=== PATIENT | male | born 1965 | race Caucasian/White ===

== ENCOUNTER 2020-02-16 07:02 | Day surgery (SDC) | payer BC ==
[2020-02-11 10:08] VITALS: BMI 32.8
[~2020-02-16 07:02] MED LIST: LACTATED RINGERS 1,000 ML IV SCH; MIDAZOLAM 2 MG/2 ML VIAL IV PRN; ONDANSETRON 4 MG/2 ML VIAL IVP PRN
[2020-02-16] MEDS ORDERED: LACTATED RINGERS 1,000 ML IV ONE (07:20)
[2020-02-16 07:21] VITALS: TEMP 97.8
[2020-02-16] MEDS ORDERED: PROPOFOL 10 MG/ML 20 ML VIAL IV ONE (07:53)
[2020-02-16] MEDS ORDERED: GLYCOPYRROLATE 0.2 MG/ML 2 ML VIAL ONE (07:53)
--- NOTE | 2020-02-16 07:59 | P.GSHP ---
History of Present Illness H&P Date: 02/16/20 CHIEF COMPLAINT: Colon screen HISTORY OF PRESENT ILLNESS: The patient is a 54-year-old male who presents for colon screen. Lower endoscopy was offered for further evaluation and management. PAST MEDICAL HISTORY: Please see list. PAST SURGICAL HISTORY: Please see list. MEDICATIONS: Please see list. ALLERGIES: Please see list. SOCIAL HISTORY: No illicit drug use FAMILY HISTORY: No reports of Crohn disease or ulcerative colitis. REVIEW OF ORGAN SYSTEMS: CONSTITUTIONAL: No reports of fevers or chills. PHYSICAL EXAM: VITAL SIGNS: Stable GENERAL: Well-developed pleasant in no acute distress. HEENT: No scleral icterus. Extraocular movements grossly intact. Moist buccal mucosa. NECK: Supple without lymphadenopathy. CHEST: Unlabored respirations. Equal bilateral excursions. CARDIOVASCULAR: Regular rate and rhythm. Distal 2+ pulses. ABDOMEN: Soft, nontender, nondistended. MUSCULOSKELETAL: No clubbing, cyanosis, or edema. ASSESSMENT: 1. Colon screen. PLAN: 1. Recommend proceeding with a lower endoscopy Past Medical History Past Medical History: Hyperlipidemia, Prostate Disorder History of Any Multi-Drug Resistant Organisms: None Reported Past Surgical History: No Surgical Hx Reported Additional Past Anesthesia/Blood Transfusion Reaction / Comment(s): no family problems Smoking Status: Current every day smoker Medications and Allergies Home Medications Medication Instructions Recorded Confirmed Type Cholesterol Med 1 tab PO DAILY 02/11/20 02/16/20 History [place]-3 Fatty Acids/Fish Oil [Fish 1 each PO DAILY 02/11/20 02/11/20 History Oil 1,000 mg Softgel] Tamsulosin(Unknown Dose) 1 tab PO DAILY 02/11/20 02/16/20 History Allergies Allergy/AdvReac Type Severity Reaction Status Date / Time No Known Allergies Allergy Verified 02/11/20 09:43 Surgical - Exam Vital Signs Temp Pulse Resp BP Pulse Ox 97.8 F 57 L 18 161/88 97 02/16/20 07:20 02/16/20 07:20 02/16/20 07:20 02/16/20 07:20 02/16/20 07:20
--- NOTE | 2020-02-16 08:18 | P.PCN ---
Date of Procedure: 02/16/20 Description of Procedure: PREOPERATIVE DIAGNOSIS: Colonoscopy screening, first POSTOPERATIVE DIAGNOSIS: Tubular adenoma sigmoid colon OPERATION: Colonoscopy to the ileocecal valve, cecum Colonoscopy with hot snare polypectomy SURGEON: Almita Marshall MD. ANESTHESIA: MAC. INDICATIONS: The patient is a 54-year-old male who presents for colonoscopy screening. Benefits and risks were described and informed consent was obtained. DESCRIPTION OF PROCEDURE: The patient had undergone Suprep. He had been brought into the operating room and laid in the left lateral decubitus position. After adequate intravenous sedation, the rectum was examined with 2% lidocaine jelly. The prostate was unremarkable. No external hemorrhoids were encountered. The rectal tone was within normal limits. No lesions were palpated in the rectal vault. An Olympus colonoscope was advanced until the cecum, ileocecal valve and appendiceal orifice were clearly viewed. The prep was good. No sigmoid diverticulosis was encountered. Large colonic polyp was found and snare polypectomy. No evidence of focal colitis was found. Retroflexion of the scope demonstrated grade 1 internal hemorrhoids without active bleeding or inflammation. The colon was desufflated. The patient had tolerated the procedure well. Withdrawal time was over 6 minutes. FINDINGS: Aronchick preparation quality scale 2 (1-5) Internal hemorrhoids, grade 1 No external hemorrhoids No arteriovenous malformations. No sigmoid diverticulosis Removal of 1 polyp: - Snare polypectomy 25 cm from the anal verge, 20 mm tubular adenoma, pre- cancerous No focal colitis. RECOMMENDATIONS: Recommend repeat colonoscopy 1 year, 2020. Plan - Discharge Summary Discharge Rx Participant: No New Discharge Prescriptions: Continue Tamsulosin(Unknown Dose) 1 tab PO DAILY [place]-3 Fatty Acids/Fish Oil [Fish Oil 1,000 mg Softgel] 1 each PO DAILY Cholesterol Med 1 tab PO DAILY Discharge Medication List Cholesterol Med 1 tab PO DAILY 02/11/20 [History] [place]-3 Fatty Acids/Fish Oil [Fish Oil 1,000 mg Softgel] 1 each PO DAILY 02/11/20 [History] Tamsulosin(Unknown Dose) 1 tab PO DAILY 02/11/20 [History] Follow up Appointment(s)/Referral(s): Almita Marshall MD [STAFF PHYSICIAN] - 02/29/20 Patient Instructions/Handouts: Colorectal Polyps (DC) Activity/Diet/Wound Care/Special Instructions: Repeat colonoscopy in one year, 2020 Discharge Disposition: HOME SELF-CARE
[2020-02-16 08:22] VITALS: RESP 16
[2020-02-16 08:47] VITALS: BP 131/85; PULSE 54
== END 2020-02-16 08:55 | disposition home or self-care (01) ==
LOC: ORWHC2ENDO 07:02
PROVIDERS: ATTEND Surgery Plastic and Reconstructive Surgery
DX: Z12.11 Encounter for screening for malignant neoplasm of colon (principal); D12.6 Benign neoplasm of colon, unspecified; K64.0 First degree hemorrhoids; E78.5 Hyperlipidemia, unspecified; N42.9 Disorder of prostate, unspecified; F17.200 Nicotine dependence, unspecified, uncomplicated; Z79.899 Other long term (current) drug therapy
CPT/HCPCS: 88305; 45385; J2405; J2704

== ENCOUNTER 2020-03-18 14:02 | Emergency (ER) | payer BC ==
[2020-03-18 14:46] VITALS: BP 150/95; PULSE 71; RESP 20; TEMP 98.7
--- NOTE | 2020-03-18 14:58 | ED ---
Skin/Abscess/FB HPI - General Chief complaint: Skin/Abscess/Foreign Body Stated complaint: RT knee poss infection Time Seen by Provider: 03/18/20 14:52 Source: patient Mode of arrival: ambulatory Limitations: no limitations - History of Present Illness Initial comments: Patient 54-year-old male presenting to emergency Department with chief complaint of right knee laceration. Patient reports laceration occurred about 3 days ago and he did not have an repaired. Patient reports since yesterday's noticed surrounding erythema but denies any discharge from laceration site. States the wound is actually healing well. He does report gradual increase in erythema and warmth on the tissue. Tetanus not up-to-date. Reports some pain but more itching at the erythematous site. Denies any night sweats fevers or chills. - Related Data Home Medications Medication Instructions Recorded Confirmed Cholesterol Med 1 tab PO DAILY 02/11/20 02/16/20 [place]-3 Fatty Acids/Fish Oil [Fish 1 each PO DAILY 02/11/20 02/11/20 Oil 1,000 mg Softgel] Tamsulosin(Unknown Dose) 1 tab PO DAILY 02/11/20 02/16/20 Previous Rx's Medication Instructions Recorded Cephalexin [Keflex] 500 mg PO Q6HR #28 cap 03/18/20 Clindamycin [Cleocin] 150 mg PO Q6H #28 capsule 03/18/20 Allergies Allergy/AdvReac Type Severity Reaction Status Date / Time No Known Allergies Allergy Verified 03/18/20 14:46 Review of Systems ROS Statement: Those systems with pertinent positive or pertinent negative responses have been documented in the HPI. ROS Other: All systems not noted in ROS Statement are negative. Past Medical History Past Medical History: Hyperlipidemia, Prostate Disorder History of Any Multi-Drug Resistant Organisms: None Reported Past Surgical History: No Surgical Hx Reported Additional Past Anesthesia/Blood Transfusion Reaction / Comment(s): no family problems Past Psychological History: No Psychological Hx Reported Smoking Status: Current every day smoker Past Alcohol Use History: None Reported Past Drug Use History: None Reported General Exam Limitations: no limitations General appearance: alert, in no apparent distress Head exam: Present: atraumatic, normocephalic, normal inspection Eye exam: Present: normal appearance, PERRL, EOMI Pupils: Present: normal accommodation ENT exam: Present: normal exam, normal oropharynx, mucous membranes moist, TM's normal bilaterally, normal external ear exam Neck exam: Present: normal inspection, full ROM. Absent: tenderness Respiratory exam: Present: normal lung sounds bilaterally. Absent: respiratory distress, wheezes Cardiovascular Exam: Present: regular rate, normal rhythm, normal heart sounds Extremities exam: Present: normal inspection (Healing wound on the right knee measuring approximately 1 cm in length. There is surrounding cellulitic skin changes likely represent cellulitis. No discharge noted), full ROM, tenderness (Tetanus at laceration site), normal capillary refill. Absent: pedal edema, joint swelling, calf tenderness Back exam: Present: normal inspection, full ROM. Absent: tenderness, CVA tenderness (R), CVA tenderness (L) Neurological exam: Present: alert, oriented X3 Psychiatric exam: Present: normal affect, normal mood Skin exam: Present: warm, dry, intact, normal color Course Vital Signs 03/18/20 14:43 Temperature 98.7 F Pulse Rate 71 Respiratory 20 Rate Blood Pressure 150/95 O2 Sat by Pulse 98 Oximetry Medical Decision Making - Medical Decision Making 54-year-old male presenting to the emergency department with a chief complaint of infected laceration site. On physical examination, patient has a well- healing laceration measuring approximately 1 cm with surrounding cellulitis. There is no discharge noted at the lacerated site. Patient has stable vitals on evaluation. Patient started on clindamycin to cover for MRSA and Keflex. Return parameters discussed the patient is understanding and agreeable. Case discussed with physician. Disposition Clinical Impression: Laceration, Cellulitis, Skin infection Disposition: HOME SELF-CARE Condition: Stable Instructions (If sedation given, give patient instructions): Cellulitis (DC) Additional Instructions: Take prescribed medication as directed. Monitor for increased infection past the marked borders. Follow with your primary care physician. Return to emergency department if symptoms worsen. Prescriptions: Clindamycin [Cleocin] 150 mg PO Q6H #28 capsule Cephalexin [Keflex] 500 mg PO Q6HR #28 cap Is patient prescribed a controlled substance at d/c from ED?: No Referrals: Rich Rincon MD [Primary Care Provider] - 1-2 days Time of Disposition: 15:17
[2020-03-18] MEDS ORDERED: DIPH,PERTUS(ACELL)TETVAC-LF 0.5 ML VIAL IM ONE (15:15)
[2020-03-18] MEDS ORDERED: CEPHALEXIN 500 MG CAP PO STA (15:15)
[2020-03-18] MEDS ORDERED: CLINDAMYCIN 150 MG CAP PO STA (15:15)
== END 2020-03-18 15:32 | disposition home or self-care (01) ==
LOC: EC 14:02
DX: S81.011A Laceration without foreign body, right knee, initial encounter (principal); L03.115 Cellulitis of right lower limb; E78.5 Hyperlipidemia, unspecified; F17.200 Nicotine dependence, unspecified, uncomplicated; Z79.899 Other long term (current) drug therapy; Z23 Encounter for immunization; X58.XXXA Exposure to other specified factors, initial encounter
CPT/HCPCS: 90471; 90715; 99282

== ENCOUNTER 2021-12-26 07:32 | Day surgery (SDC) | payer OTHER ==
[2021-12-24 12:36] VITALS: BMI 30.3
[~2021-12-26 07:32] MED LIST changes: +LIDOCAINE 1% (10MG/ML) FOR IV START INTRADERMA PRN; -MIDAZOLAM 2 MG/2 ML VIAL IV PRN; -ONDANSETRON 4 MG/2 ML VIAL IVP PRN
[2021-12-26] MEDS ORDERED: LACTATED RINGERS 1,000 ML IV ONE (08:00)
--- NOTE | 2021-12-26 08:02 | P.GSHP ---
History of Present Illness H&P Date: 12/26/21 CHIEF COMPLAINT: Colon screen HISTORY OF PRESENT ILLNESS: The patient is a 56-year-old male who presents for colon screen. Lower endoscopy was offered for further evaluation and management. PAST MEDICAL HISTORY: Please see list. PAST SURGICAL HISTORY: Please see list. MEDICATIONS: Please see list. ALLERGIES: Please see list. SOCIAL HISTORY: No illicit drug use FAMILY HISTORY: No reports of Crohn disease or ulcerative colitis. REVIEW OF ORGAN SYSTEMS: CONSTITUTIONAL: No reports of fevers or chills. PHYSICAL EXAM: VITAL SIGNS: Stable GENERAL: Well-developed pleasant in no acute distress. HEENT: No scleral icterus. Extraocular movements grossly intact. Moist buccal mucosa. NECK: Supple without lymphadenopathy. CHEST: Unlabored respirations. Equal bilateral excursions. CARDIOVASCULAR: Regular rate and rhythm. Distal 2+ pulses. ABDOMEN: Soft, nontender, nondistended. MUSCULOSKELETAL: No clubbing, cyanosis, or edema. ASSESSMENT: 1. Colon screen. PLAN: 1. Recommend proceeding with a lower endoscopy Past Medical History Past Medical History: Hyperlipidemia Additional Past Medical History / Comment(s): hx colon polyp, History of Any Multi-Drug Resistant Organisms: None Reported Past Surgical History: No Surgical Hx Reported Additional Past Surgical History / Comment(s): colonoscopy Past Anesthesia/Blood Transfusion Reactions: No Reported Reaction Additional Past Anesthesia/Blood Transfusion Reaction / Comment(s): . Smoking Status: Current every day smoker - Past Family History Mother Family Medical History: No Reported History Medications and Allergies Home Medications Medication Instructions Recorded Confirmed Type Aspirin(Dose Unknown) 1 tab PO DAILY PRN 12/24/21 12/24/21 History lisinopriL [Zestril] 10 mg PO DAILY 12/24/21 12/24/21 History Allergies Allergy/AdvReac Type Severity Reaction Status Date / Time No Known Allergies Allergy Verified 12/24/21 12:29
[2021-12-26 08:06] VITALS: RESP 16; TEMP 97.4
[2021-12-26] MEDS ORDERED: MIDAZOLAM 2 MG/2 ML VIAL ONE (09:23)
[2021-12-26] MEDS ORDERED: PROPOFOL 10 MG/ML 20 ML VIAL IV ONE (09:23)
[2021-12-26] MEDS ORDERED: fentaNYL (PF) 50 MCG/ML 50 ML VIAL ONE (09:23)
[2021-12-26] MEDS ORDERED: LIDOCAINE 2% INJ 20 MG/ML (2 ML VIAL) ONE (09:23)
--- NOTE | 2021-12-26 09:54 | P.PCN ---
Description of Procedure: PREOPERATIVE DIAGNOSIS: Personal history colon polyp Colonoscopy screening. POSTOPERATIVE DIAGNOSIS: Personal history colon polyp Colonoscopy screening. OPERATION: Colonoscopy to the cecum, ileocecal valve and appendiceal orifice. SURGEON: Almita Marshall MD. ANESTHESIA: MAC. INDICATIONS: The patient is a 56-year-old male who presents for colonoscopy screening. Last colonoscopy 5 years ago. Benefits and risks were described and informed consent was obtained. DESCRIPTION OF PROCEDURE: The patient had undergone [place] prep. The patient had been brought into the operating room and laid in the left lateral decubitus position. After adequate intravenous sedation, the rectum was examined with 2% lidocaine jelly. No exter nal hemorrhoids were encountered. The rectal tone was within normal limits. No lesions were palpated in the rectal vault. An Olympus colonoscope was advanced until the cecum, ileocecal valve and appendiceal orifice were clearly viewed. The prep was good. No scattered diverticulosis was encountered. No colonic polyps were found. No evidence of focal colitis was found. Retroflexion of the scope demonstrated grade 1 internal hemorrhoids without active bleeding or inflammation. The colon was desufflated. The patient had tolerated the procedure well. Withdrawal time was over 6 minutes. FINDINGS: Aronchick preparation quality scale 2 (1-5) Internal hemorrhoids, grade 1 No external prolapsed hemorrhoids. No arteriovenous malformations. No adenomatous polyps. No focal colitis. RECOMMENDATIONS: Lower endoscopy in 2026 Plan - Discharge Summary New Discharge Prescriptions: Continue lisinopriL [Zestril] 10 mg PO DAILY Aspirin(Dose Unknown) 1 tab PO DAILY PRN PRN Reason: Pain Discharge Medication List Aspirin(Dose Unknown) 1 tab PO DAILY PRN 12/24/21 [History] lisinopriL [Zestril] 10 mg PO DAILY 12/24/21 [History] Follow up Appointment(s)/Referral(s): Almita Marshall MD [STAFF PHYSICIAN] - As Needed Patient Instructions/Handouts: *Surgery [facility] - (Anesthesia) Endoscopy Discharge Instructions Activity/Diet/Wound Care/Special Instructions: Repeat colonoscopy 2026 Discharge Disposition: HOME SELF-CARE
[2021-12-26 10:10] VITALS: BP 113/76; PULSE 63
== END 2021-12-26 10:31 | disposition home or self-care (01) ==
LOC: ORWHC2ENDO 07:32
PROVIDERS: ATTEND Surgery Plastic and Reconstructive Surgery
DX: Z12.11 Encounter for screening for malignant neoplasm of colon (principal); K64.0 First degree hemorrhoids; Z86.010 Personal history of colon polyps; F17.200 Nicotine dependence, unspecified, uncomplicated; E78.5 Hyperlipidemia, unspecified; Z87.19 Personal history of other diseases of the digestive system
CPT/HCPCS: 45378; J2250; J3010; J2704; J2001

== ENCOUNTER 2022-04-02 18:29 | Emergency (ER) | payer OTHER ==
[2022-04-02 18:43] VITALS: TEMP 98.8
[2022-04-02] MEDS ORDERED: ORPHENADRINE 30 MG/ML 2 ML VIAL IM STA (19:23)
[2022-04-02] MEDS ORDERED: KETOROLAC 15 MG/ML 1 ML VIAL IM STA (19:23)
[2022-04-02 19:35] VITALS: RESP 18
--- NOTE | 2022-04-02 20:03 | ED ---
General Adult HPI - General Chief complaint: Abdominal Pain Stated complaint: back pain Time Seen by Provider: 04/02/22 19:07 Source: patient Mode of arrival: ambulatory Limitations: no limitations - History of Present Illness Initial comments: Patient is a 57-year-old male presenting with chief complaint of back pain. Patient has been having right-sided back pain on and off for the last month. He admits to frequent urination. Denies dysuria or hematuria. Patient states that he was seen by urologist and found to have a cyst on his kidney. He denies any abdominal pain. No nausea or vomiting. No chest pain or difficulty breathing. Patient has been taking Motrin for the pain which completely alleviates the pain for a few hours. Pain is worse with range of motion. No loss of bowel or bladder control or saddle paresthesia. - Related Data Home Medications Medication Instructions Recorded Confirmed Lisinopril-Hctz 10-12.5 mg 1 tab PO DIRECTED 04/02/22 04/02/22 [Zestoretic 10-12.5] Tamsulosin [Flomax] 0.4 mg PO DAILY 04/02/22 04/02/22 Previous Rx's Medication Instructions Recorded Ciprofloxacin HCl [Cipro] 500 mg PO BID 7 Days #14 tab 04/02/22 Allergies Allergy/AdvReac Type Severity Reaction Status Date / Time No Known Allergies Allergy Verified 04/02/22 20:22 Review of Systems ROS Statement: Those systems with pertinent positive or pertinent negative responses have been documented in the HPI. ROS Other: All systems not noted in ROS Statement are negative. Past Medical History Past Medical History: Hyperlipidemia Additional Past Medical History / Comment(s): hx colon polyp, cyst on kidney History of Any Multi-Drug Resistant Organisms: None Reported Past Surgical History: No Surgical Hx Reported Additional Past Surgical History / Comment(s): colonoscopy Past Anesthesia/Blood Transfusion Reactions: No Reported Reaction Additional Past Anesthesia/Blood Transfusion Reaction / Comment(s): . Past Psychological History: No Psychological Hx Reported Smoking Status: Current every day smoker - Past Family History Mother Family Medical History: No Reported History General Exam Limitations: no limitations General appearance: alert, in no apparent distress Head exam: Present: atraumatic, normocephalic, normal inspection Eye exam: Present: normal appearance Neck exam: Present: normal inspection Respiratory exam: Present: normal lung sounds bilaterally. Absent: respiratory distress, wheezes, rales, rhonchi, stridor Cardiovascular Exam: Present: regular rate, normal rhythm, normal heart sounds. Absent: systolic murmur, diastolic murmur, rubs, gallop, clicks GI/Abdominal exam: Present: soft. Absent: distended, tenderness, guarding, rebound, rigid Back exam: Absent: CVA tenderness (R), CVA tenderness (L) Neurological exam: Present: alert, oriented X3, CN II-XII intact Psychiatric exam: Present: normal affect, normal mood Skin exam: Present: warm, dry, intact, normal color. Absent: rash Course Vital Signs 04/02/22 04/02/22 04/02/22 18:40 19:34 22:37 Temperature 98.8 F Pulse Rate 91 86 75 Respiratory 20 18 18 Rate Blood Pressure 210/110 154/93 160/78 O2 Sat by Pulse 97 98 98 Oximetry Medical Decision Making - Medical Decision Making Was pt. sent in by a medical professional or institution (, PA, MACHINE WOODWORKING SANDER, urgent care, hospital, or prison...) When possible be specific @ -[No] Did you speak to anyone other than the patient for history (EMS, parent, family, police, friend...)? What history was obtained from this source @ -[No] Did you review nursing and triage notes (agree or disagree)? Why? @ -I reviewed the triage note and disagree, patient has no CVA tenderness on my examination and denies painful urination Were old charts reviewed (outside hosp., previous admission, EMS record, old EKG, old radiological studies, urgent care reports/EKG's, prison records)? Report findings @ -[No old charts were reviewed] Differential Diagnosis (chest pain, altered mental status, abdominal pain women, abdominal pain men, vaginal bleeding, weakness, fever, dyspnea, syncope, headache, dizziness, GI bleed, back pain, seizure, CVA, palpatations, mental health)? @ -MDM Differential Back Pain: Strain, zoster, cauda equina syndrome, epidural abscess, vertebral osteomyelitis, discitis, fracture, subluxation, disc herniation, DJD, spinal stenosis, dissection, AAA, pancreatitis, peptic ulcer disease, pyelonephritis, kidney stone this is not meant to be an all-inclusive list. EKG interpreted by me (3pts min.). @ -None X-rays interpreted by me (1pt min.). @ -X-ray of the lumbar spine KUB x-ray showed no acute process CT interpreted by me (1pt min.). @ -No, Radiologist report is reviewed. Moderate hydroureter nephrosis without obstructive calculus identified. May represent a recently passed stone. Circumferential bladder wall thickening. Prostatomegaly. Bilateral fat conta ining inguinal hernias. U/S interpreted by me (1pt. min.). @ -[None done] What testing was considered but not performed or refused? (CT, X-rays, U/S, labs)? Why? @ -[None] What meds were considered but not given or refused? Why? @ -[None] Did you discuss the management of the patient with other professionals (professionals i.e. , PA, MACHINE WOODWORKING SANDER, lab, RT, psych nurse, social studies department chair, costume rental clerk, teacher, upscale security officer, returned case inspector)? Give summary @ -[No] Was smoking cessation discussed for >3mins.? @ -[No] Was critical care preformed (if so, how long)? @ -[No] Were there social determinants of health that impacted care today? How? (Homelessness, low income, unemployed, alcoholism, drug addiction, transportation, low edu. Level, literacy, decrease access to med. care, [place] [facility], rehab)? @ -[No] Was there de-escalation of care discussed even if they declined (Discuss DNR or withdrawal of care, Hospice)? DNR status @ -[No] What co-morbidities impacted this encounter? (DM, HTN, Smoking, COPD, CAD, Cancer, CVA, ARF, Chemo, Hep., AIDS, mental health diagnosis, sleep apnea, morbid obesity)? @ -Hypertension Was patient admitted / discharged? Hospital course, mention meds given and route, prescriptions, significant lab abnormalities, going to OR and other pertinent info. @ -Patient is a 57-year-old male presenting with chief complaint of right-sided flank pain for the last month. On physical examination there is no CVA tenderness. Patient does have pain with range of motion. Urine shows moderate blood and large leukocytes. Lab work shows no leukocytosis or anemia. X-ray of the lumbar spine KUB x-ray showed no acute process. CT of the abdomen and pelvis without contrast shows hydroureter nephrosis without obstructive calculus, likely recently passed stone. CT also shows signs of cystitis, this correlates clinically with the patient's symptom of frequent urination. Patient will be treated with ciprofloxacin. Patient is educated on these findings and treatment plan. He is encouraged to follow up with his urologist at [facility]. Follow-up with PCP. Report back to ER with any new or worsening symptoms. Discussed return parameters and answered all questions. Patient conveyed verbal understanding and agreed to the plan. I discussed this case in detail with my attending Dr. Freire Undiagnosed new problem with uncertain prognosis? @ -[No] Drug Therapy requiring intensive monitoring for toxicity (Heparin, Nitro, Insulin, Cardizem)? @ -[No] Were any procedures done? @ -[No] Diagnosis/symptom? @ -Cystitis Acute, or Chronic, or Acute on Chronic? @ -Acute Uncomplicated (without systemic symptoms) or Complicated (systemic symptoms)? @ -Uncomplicated Side effects of treatment? @ -[No] Exacerbation, Progression, or Severe Exacerbation? @ -[No] Poses a threat to life or bodily function? How? (Chest pain, [place], [place], pneumonia, PE, COPD, DKA, ARF, appy, cholecystitis, CVA, Diverticulitis, Homicidal, Suicidal, threat to staff... and all critical care pts) @ -Infection of the urinary tract if not properly treated may progress to pyelonephritis and bacteremia. Patient is educated on the risk of infection and the importance of follow-up. Educated on the the importance of reporting back to the ER if symptoms persist or do not improve. - Lab Data Result diagrams: 04/02/22 21:05 04/02/22 21:05 Lab Results 04/02/22 04/02/22 04/02/22 Range/Units 19:30 21:05 21:05 WBC 10.0 (3.8-10.6) k/uL RBC 4.77 (4.30-5.90) m/uL Hgb 15.0 (13.0-17.5) gm/dL Hct 43.8 (39.0-53.0) % MCV 91.8 (80.0-100.0) fL MCH 31.4 (25.0-35.0) pg MCHC 34.2 (31.0-37.0) g/dL RDW 11.8 (11.5-15.5) % Plt Count 224 (150-450) k/uL MPV 7.7 Neutrophils % 72 % Lymphocytes % 18 % Monocytes % 6 % Eosinophils % 2 % Basophils % 1 % Neutrophils # 7.1 (1.3-7.7) k/uL Lymphocytes # 1.8 (1.0-4.8) k/uL Monocytes # 0.6 (0-1.0) k/uL Eosinophils # 0.2 (0-0.7) k/uL Basophils # 0.1 (0-0.2) k/uL Sodium 138 (137-145) mmol/L Potassium 4.0 (3.5-5.1) mmol/L Chloride 107 (98-107) mmol/L Carbon Dioxide 27 (22-30) mmol/L Anion Gap 4 mmol/L BUN 16 (9-20) mg/dL Creatinine 0.72 (0.66-1.25) mg/dL Est GFR (CKD-EPI)AfAm >90 (>60 ml/min/1.73 sqM) Est GFR (CKD-EPI)NonAf >90 (>60 ml/min/1.73 sqM) Glucose 114 H (74-99) mg/dL Plasma Lactic Acid Panchito (0.7-2.0) mmol/L Calcium 8.8 (8.4-10.2) mg/dL Total Bilirubin 0.7 (0.2-1.3) mg/dL AST 32 (17-59) U/L ALT 44 (4-49) U/L Alkaline Phosphatase 73 (38-126) U/L Total Protein 6.1 L (6.3-8.2) g/dL Albumin 3.4 L (3.5-5.0) g/dL Urine Color Yellow Urine Appearance Cloudy (Clear) Urine pH 5.5 (5.0-8.0) Ur Specific [place] 1.020 (1.001-1.035) Urine Protein 1+ H (Negative) Urine Glucose (UA) Negative (Negative) Urine Ketones Negative (Negative) Urine Blood Moderate H (Negative) Urine Nitrite Negative (Negative) Urine Bilirubin Negative (Negative) Urine Urobilinogen <2.0 (<2.0) mg/dL Ur Leukocyte Esterase Large H (Negative) Urine RBC >182 H (0-5) /hpf Urine WBC 150 H (0-5) /hpf Urine Bacteria Occasional H (None) /hpf Urine Mucus Rare H (None) /hpf 04/02/22 Range/Units 21:05 WBC (3.8-10.6) k/uL RBC (4.30-5.90) m/uL Hgb (13.0-17.5) gm/dL Hct (39.0-53.0) % MCV (80.0-100.0) fL MCH (25.0-35.0) pg MCHC (31.0-37.0) g/dL RDW (11.5-15.5) % Plt Count (150-450) k/uL MPV Neutrophils % % Lymphocytes % % Monocytes % % Eosinophils % % Basophils % % Neutrophils # (1.3-7.7) k/uL Lymphocytes # (1.0-4.8) k/uL Monocytes # (0-1.0) k/uL Eosinophils # (0-0.7) k/uL Basophils # (0-0.2) k/uL Sodium (137-145) mmol/L Potassium (3.5-5.1) mmol/L Chloride (98-107) mmol/L Carbon Dioxide (22-30) mmol/L Anion Gap mmol/L BUN (9-20) mg/dL Creatinine (0.66-1.25) mg/dL Est GFR (CKD-EPI)AfAm (>60 ml/min/1.73 sqM) Est GFR (CKD-EPI)NonAf (>60 ml/min/1.73 sqM) Glucose (74-99) mg/dL Plasma Lactic Acid Panchito 0.8 (0.7-2.0) mmol/L Calcium (8.4-10.2) mg/dL Total Bilirubin (0.2-1.3) mg/dL AST (17-59) U/L ALT (4-49) U/L Alkaline Phosphatase (38-126) U/L Total Protein (6.3-8.2) g/dL Albumin (3.5-5.0) g/dL Urine Color Urine Appearance (Clear) Urine pH (5.0-8.0) Ur Specific [place] (1.001-1.035) Urine Protein (Negative) Urine Glucose (UA) (Negative) Urine Ketones (Negative) Urine Blood (Negative) Urine Nitrite (Negative) Urine Bilirubin (Negative) Urine Urobilinogen (<2.0) mg/dL Ur Leukocyte Esterase (Negative) Urine RBC (0-5) /hpf Urine WBC (0-5) /hpf Urine Bacteria (None) /hpf Urine Mucus (None) /hpf Disposition Clinical Impression: Cystitis, Hydronephrosis Disposition: HOME SELF-CARE Condition: Good Instructions (If sedation given, give patient instructions): Urinary Tract Infection in Men (ED), Flank Pain (ED) Additional Instructions: Follow-up with PCP and your urologist. Report back to ER with any new or worsening symptoms. Take medication as prescribed. Take Motrin and Tylenol as needed for pain control. Prescriptions: Ciprofloxacin HCl [Cipro] 500 mg PO BID 7 Days #14 tab Is patient prescribed a controlled substance at d/c from ED?: No Referrals: Jennifer Herrera MD [Primary Care Provider] - 1-2 days Time of Disposition: 22:16
[2022-04-02 20:16] LABS: Appearance,Urine Cloudy (Clear); Bacteria,Urine Occasional /hpf; Bilirubin,Urine Negative (Negative); Blood,Urine Moderate (Negative); Color,Urine Yellow; Glucose,Urine (UA) Negative (Negative); Ketones,Urine Negative (Negative); Leukocyte Esterase,Urine Large (Negative); Mucus,Urine Rare /hpf; Nitrite,Urine Negative (Negative); PH, Urine 5.5 (5.0-8.0); Protein,Urine 1+ (Negative); RBC,Urine >182 /hpf (0-5); Urobilinogen,Urine <2.0 mg/dL (<2.0); WBC,Urine 150 /hpf (0-5)
--- NOTE | 2022-04-02 20:28 | XR ---
EXAMINATION TYPE: XR KUB DATE OF EXAM: 04/02/2022 7:50 PM INDICATION: Patient age:Male; 57 years old; Reason for study: flank pain; COMPARISON: Spine radiograph same day. TECHNIQUE: One radiographic view of the abdomen was obtained. FINDINGS: The bowel gas pattern is nonspecific without dilated loops of small or large bowel. There i s no evidence for organomegaly or pneumoperitoneum. The osseous structures are intact. No abnormal calcifications are present. Fecal material and gas are demonstrated throughout the colon and rectum. Scoliosis changes to the spine dextroscoliosis apex L2-L3. IMPRESSION: Nonspecific bowel gas pattern without radiographic evidence for acute process.
--- NOTE | 2022-04-02 20:29 | XR ---
EXAMINATION TYPE: XR lumbar spine 2 or 3V DATE OF EXAM: 04/02/2022 7:53 PM INDICATION: Patient age:Male; 57 years old; Reason for study: flank pain; COMPARISON: Same day KUB. TECHNIQUE: Frontal, lateral and coned in L5-S1 lateral views of the spine. FINDINGS: No evidence of any acute osseous pathology. No evidence of loss of vertebral body height i s seen. . DEXA scoliosis apex L2-L3 Mild scattered disc space narrowing. Multilevel marginal osteophy te formation throughout the visualized spine. There is facet joint arthropathy throughout the spine. Scattered at least mild neural foraminal stenosis. IMPRESSION: 1. No acute fracture. 2. Moderate multilevel disc degeneration.
[2022-04-02] MEDS ORDERED: SODIUM CHLORIDE 0.9% 1,000 ML IV ONE (20:33)
[2022-04-02 21:18] LABS: Basophils # (A) 0.1 k/uL (0-0.2); Basophils % (A) 1 %; Eosinophils # (A) 0.2 k/uL (0-0.7); Eosinophils % (A) 2 %; HCT 43.8 % (39.0-53.0); Lymphocytes # (A) 1.8 k/uL (1.0-4.8); Lymphocytes % (A) 18 %; MCH 31.4 pg (25.0-35.0); MCHC 34.2 g/dL (31.0-37.0); MCV 91.8 fL (80.0-100.0); Mean Platelet Volume 7.7; Monocytes # (A) 0.6 k/uL (0-1.0); Monocytes % (A) 6 %; Neutrophils # (A) 7.1 k/uL (1.3-7.7); Neutrophils % (A) 72 %; Platelet Count 224 k/uL (150-450); RBC 4.77 m/uL (4.30-5.90); RDW 11.8 % (11.5-15.5)
--- NOTE | 2022-04-02 21:21 | CT ---
EXAMINATION TYPE: CT abdomen pelvis wo con CT DLP: 1110.4 mGycm, Automated exposure control for dose reduction was used. DATE OF EXAM: 04/02/2022 8:56 PM COMPARISON: None CLINICAL INDICATION:Male, 57 years old with history of flank pain, kidney stone suspected; Rt side fl ank pain x1mo. Painful urination. TECHNIQUE: Axial CT of the abdomen and pelvis. Sagittal and coronal reformats were created on a [employer] workstation. Contrast used: None Oral contrast used: without Oral Contrast FINDINGS: LOWER CHEST: [id number] ABDOMEN Motion artifact limits evaluation slightly. LIVER: Unremarkable GALLBLADDER AND BILE DUCTS: Unremarkable. PANCREAS: Unremarkable. SPLEEN: Enlarged measuring up to 16.0 cm.e ADRENAL GLANDS: Unremarkable. KIDNEYS AND URETERS: Left peripelvic renal cysts. Mild right hydronephrosis with out evidence for obs tructive uropathy. PELVIS BLADDER: Circumferential bladder wall prominence with some hazy fat interface. REPRODUCTIVE: Prostate is enlarged in size measuring 6.2 cm in transverse dimension. ABDOMEN & PELVIS STOMACH AND BOWEL: Small hiatal hernia, duodenum is unremarkable. Scattered diverticula are noted thr oughout the colon. No evidence of bowel obstruction. Appendix not definitively visualized. PERITONEUM/RETROPERITONEUM: No evidence of pneumoperitoneum or free fluid. . VASCULATURE: No evidence of aortic aneurysm. Atherosclerosis of the arterial vasculature. MUSCULOSKELETAL: No acute osseous abnormalities, multilevel disc degeneration changes disc space narr owing vacuum disc phenomenon, osteophytes and facet joint arthropathy. LYMPH NODES: No gross evidence for lymphadenopathy. SOFT TISSUE/ABDOMINAL WALL: Bilateral fat-containing inguinal hernias. IMPRESSION: 1. Moderate hydroureteronephrosis without obstructive calculus identified. This may represent recent ly passed stone. Correlate clinically and with urinalysis. The appendix is not definitively visualize d. 2. Circumferential bladder wall thickening. Correlate with urinalysis for cystitis. 3. Prostatomegaly correlate with serum PSA. 4. Bilateral fat-containing inguinal hernias.
[2022-04-02 21:24] LABS: ALT 44 U/L (4-49); AST 32 U/L (17-59); African American GFR (CKD) >90 (>60 ml/min/1.73 sqM); Albumin 3.4 g/dL (3.5-5.0); Alkaline Phosphatase 73 U/L (38-126); Anion Gap 4 mmol/L; Blood Urea Nitrogen 16 mg/dL (9-20); Calcium 8.8 mg/dL (8.4-10.2); Carbon Dioxide 27 mmol/L (22-30); Chloride 107 mmol/L (98-107); Glucose 114 mg/dL (74-99); Non-African American GFR(CKD) >90 (>60 ml/min/1.73 sqM); Sodium 138 mmol/L (137-145); Total Bilirubin 0.7 mg/dL (0.2-1.3); Total Protein 6.1 g/dL (6.3-8.2)
[2022-04-02] MEDS ORDERED: CIPROFLOXACIN HCL 500 MG TAB PO STA (22:16)
[2022-04-02 22:39] VITALS: BP 160/78; PULSE 75
== END 2022-04-02 22:38 | disposition home or self-care (01) ==
LOC: EC 18:29
DX: N30.90 Cystitis, unspecified without hematuria (principal); N13.30 Unspecified hydronephrosis; F17.200 Nicotine dependence, unspecified, uncomplicated
CPT/HCPCS: 36415; 80053; 83605; 85025; 81001; 87086; 72100; 74018; 74176; 99284; 96360; 96372; J2360; J1885

== ENCOUNTER 2022-07-03 14:55 | Emergency (ER) | payer OTHER ==
[2022-07-03 15:23] VITALS: TEMP 97.9
[2022-07-03] MEDS ORDERED: SODIUM CHLORIDE 0.9% 1,000 ML IV STA ×2 (15:47)
[2022-07-03] MEDS ORDERED: ONDANSETRON 4 MG/2 ML VIAL IVP STA (15:47)
[2022-07-03] MEDS ORDERED: KETOROLAC 15 MG/ML 1 ML VIAL IVP STA (15:47)
--- NOTE | 2022-07-03 15:57 | ED ---
Abdominal Pain HPI - General Chief Complaint: Back Pain/Injury Stated Complaint: KIDNEY STONES Time Seen by Provider: 07/03/22 15:27 Source: patient, RN notes reviewed, old records reviewed Mode of arrival: ambulatory Limitations: no limitations - History of Present Illness Initial Comments: This is a 57-year-old male to the emergency department for evaluation ketones and comes in for evaluation back pain flank pain significant severe. History of kidney stones feels a prior kidney stones. No travel show sick contacts no dysuria no blood in his urine. No fevers no other complaints MD Complaint: abdominal pain, flank pain -: hour(s) Location: diffuse Radiation: bilateral flank Migration to: no migration Severity: moderate Severity scale (1-10): 5 Quality: stabbing Consistency: intermittent Improves With: nothing Worsens With: nothing Context: other Associated Symptoms: denies other symptoms Treatments Prior to Arrival: other (0) - Related Data Home Medications Medication Instructions Recorded Confirmed Lisinopril-Hctz 10-12.5 mg 1 tab PO DIRECTED 04/02/22 04/02/22 [Zestoretic 10-12.5] Tamsulosin [Flomax] 0.4 mg PO DAILY 04/02/22 04/02/22 Previous Rx's Medication Instructions Recorded Ciprofloxacin HCl [Cipro] 500 mg PO BID 7 Days #14 tab 04/02/22 Allergies Allergy/AdvReac Type Severity Reaction Status Date / Time No Known Allergies Allergy Verified 07/03/22 15:23 Review of Systems ROS Statement: Those systems with pertinent positive or pertinent negative responses have been documented in the HPI. ROS Other: All systems not noted in ROS Statement are negative. Past Medical History Past Medical History: Hyperlipidemia Additional Past Medical History / Comment(s): hx colon polyp, cyst on kidney, kidey stones History of Any Multi-Drug Resistant Organisms: None Reported Past Surgical History: No Surgical Hx Reported Additional Past Surgical History / Comment(s): colonoscopy Past Anesthesia/Blood Transfusion Reactions: No Reported Reaction Additional Past Anesthesia/Blood Transfusion Reaction / Comment(s): . Past Psychological History: No Psychological Hx Reported Smoking Status: Current every day smoker Past Alcohol Use History: Occasional Past Drug Use History: Marijuana - Past Family History Mother Family Medical History: No Reported History General Exam Limitations: no limitations General appearance: alert, in no apparent distress Head exam: Present: atraumatic, normocephalic, normal inspection Eye exam: Present: normal appearance, PERRL, EOMI. Absent: scleral icterus, conjunctival injection, periorbital swelling ENT exam: Present: normal exam, mucous membranes moist Neck exam: Present: normal inspection. Absent: tenderness, meningismus, lymphadenopathy Respiratory exam: Present: normal lung sounds bilaterally. Absent: respiratory distress, wheezes, rales, rhonchi, stridor Cardiovascular Exam: Present: regular rate, normal rhythm, normal heart sounds. Absent: systolic murmur, diastolic murmur, rubs, gallop, clicks GI/Abdominal exam: Present: soft, normal bowel sounds. Absent: distended, tenderness, guarding, rebound, rigid Extremities exam: Present: normal inspection, full ROM, normal capillary refill. Absent: tenderness, pedal edema, joint swelling, calf tenderness Back exam: Present: normal inspection Neurological exam: Present: alert, oriented X3, CN II-XII intact Psychiatric exam: Present: normal affect, normal mood Skin exam: Present: warm, dry, intact, normal color. Absent: rash Course Vital Signs 07/03/22 07/03/22 15:21 17:31 Temperature 97.9 F Pulse Rate 65 76 Respiratory 20 18 Rate Blood Pressure 157/96 146/84 O2 Sat by Pulse 96 99 Oximetry - Reevaluation(s) Reevaluation #1: 07/03/22 18:00 medical record is reviewed Reevaluation #2: 07/03/22 18:00 Patient symptoms are improved here in the ER Reevaluation #3: 07/03/22 18:00 Patient informed results and questions answered Reevaluation #4: 07/03/22 18:00 Was pt. sent in by a medical professional or institution? @ -no Did you speak to anyone other than the patient for history? @ -no Did you review nursing and triage notes? @ -agree Were old charts reviewed? @ -non Differential Diagnosis? @ -no EKG interpreted by me (3pts min.)? @ -no X-rays interpreted by me (1pt min.)? @ -no CT interpreted by me (1pt min.)? @ -no U/S interpreted by me (1pt. min.)? @ -no What testing was considered but not performed? (CT, X-rays, U/S, labs)? Why? @ -no What meds were considered but not given? Why? @ -no Did you discuss the management of the patient with other professionals? @ -no Did you reconcile home meds? @ -no Was smoking cessation discussed for >3mins.? @ -no Was critical care preformed (if so, how long)? @ -no Were there social determinants of health that impacted care today? How? (Homelessness, low income, unemployed, alcoholism, drug addiction, transportation, low edu. Level, literacy, decrease access to med. care, fdc, rehab)? @ -no Was there de-escalation of care discussed even if they declined? (Discuss DNR or withdrawal of care, Hospice)? @ -no What co-morbidities impacted this encounter? (DM, HTN, Smoking, COPD, CAD, Cancer, CVA, Hep., AIDS, mental health diagnosis, sleep apnea, morbid obesity)? @ -no Was patient admitted / discharged? @ -dc Undiagnosed new problem with uncertain prognosis? @ -no Drug Therapy requiring intensive monitoring for toxicity (Heparin, Nitro, I nsulin, Cardizem)? @ -no Were any procedures done? @ -no Diagnosis/symptom? @ -no Acute, or Chronic, or Acute on Chronic? @ -no Uncomplicated (without systemic symptoms) or Complicated (systemic symptoms)? @ -no Side effects of treatment? @ -no Exacerbation, Progression, or Severe Exacerbation] @ -no Poses a threat to life or bodily function? @ -no Reevaluation #5: 07/01/22 18:00 Differential Abdominal Pain Men: Appendicitis, cholecystitis, diverticulosis, ischemic bowel, pancreatitis, hepatitis, UTI, gastroenteritis, AAA, incarcerated hernia, bowel obstruction, constipation, inflammatory bowel, hepatitis, peptic ulcer disease, splenic infarction, perforated viscus, testicular torsion, this is not meant to be an all-inclusive list Medical Decision Making - Medical Decision Making 57 male to the ED for abdominal pain concern kidney stones no significant findings and can be discharged - Lab Data Result diagrams: 07/03/22 16:22 07/03/22 16:22 Lab Results 07/03/22 07/03/22 Range/Units 16:22 16:22 WBC 5.5 (3.8-10.6) k/uL RBC 5.17 (4.30-5.90) m/uL Hgb 16.7 (13.0-17.5) gm/dL Hct 47.3 (39.0-53.0) % MCV 91.5 (80.0-100.0) fL MCH 32.3 (25.0-35.0) pg MCHC 35.3 (31.0-37.0) g/dL RDW 12.4 (11.5-15.5) % Plt Count 196 (150-450) k/uL MPV 7.5 Neutrophils % 60 % Lymphocytes % 30 % Monocytes % 5 % Eosinophils % 3 % Basophils % 0 % Neutrophils # 3.3 (1.3-7.7) k/uL Lymphocytes # 1.7 (1.0-4.8) k/uL Monocytes # 0.3 (0-1.0) k/uL Eosinophils # 0.2 (0-0.7) k/uL Basophils # 0.0 (0-0.2) k/uL Sodium 137 (137-145) mmol/L Potassium 4.2 (3.5-5.1) mmol/L Chloride 104 (98-107) mmol/L Carbon Dioxide 26 (22-30) mmol/L Anion Gap 7 mmol/L BUN 14 (9-20) mg/dL Creatinine 0.79 (0.66-1.25) mg/dL Est GFR (CKD-EPI)AfAm >90 (>60 ml/min/1.73 sqM) Est GFR (CKD-EPI)NonAf >90 (>60 ml/min/1.73 sqM) Glucose 99 (74-99) mg/dL Calcium 9.6 (8.4-10.2) mg/dL Total Bilirubin 1.4 H (0.2-1.3) mg/dL AST 57 (17-59) U/L ALT 80 H (4-49) U/L Alkaline Phosphatase 75 (38-126) U/L Total Protein 6.7 (6.3-8.2) g/dL Albumin 4.0 (3.5-5.0) g/dL Amylase 45 (30-110) U/L Lipase 65 (23-300) U/L - Radiology Data Radiology results: report reviewed (CT of the abdomen and pelvis is negative for acute disease), image reviewed Disposition Clinical Impression: Abdominal pain Disposition: HOME SELF-CARE Instructions (If sedation given, give patient instructions): Acute Low Back Pain (ED), Abdominal Pain (ED) Is patient prescribed a controlled substance at d/c from ED?: No Referrals: Jennifer Herrera MD [Primary Care Provider] - 1-2 days Time of Disposition: 17:20
[2022-07-03 16:30] LABS: Basophils % (A) 0 %; Eosinophils # (A) 0.2 k/uL (0-0.7); Eosinophils % (A) 3 %; HCT 47.3 % (39.0-53.0); HGB 16.7 gm/dL (13.0-17.5); Lymphocytes # (A) 1.7 k/uL (1.0-4.8); Lymphocytes % (A) 30 %; MCH 32.3 pg (25.0-35.0); MCHC 35.3 g/dL (31.0-37.0); MCV 91.5 fL (80.0-100.0); Mean Platelet Volume 7.5; Monocytes # (A) 0.3 k/uL (0-1.0); Monocytes % (A) 5 %; Neutrophils # (A) 3.3 k/uL (1.3-7.7); Neutrophils % (A) 60 %; Platelet Count 196 k/uL (150-450); RBC 5.17 m/uL (4.30-5.90); RDW 12.4 % (11.5-15.5); WBC 5.5 k/uL (3.8-10.6)
--- NOTE | 2022-07-03 16:33 | CT ---
EXAMINATION TYPE: CT abdomen pelvis wo con CT DLP: 1203.4 mGycm, Automated exposure control for dose reduction was used. DATE OF EXAM: 07/03/2022 4:22 PM COMPARISON: CT abdomen pelvis most recent from 04/02/2022 CLINICAL INDICATION:Male, 57 years old with history of abdominal pain; flank pain TECHNIQUE: Axial CT of the abdomen and pelvis. Sagittal and coronal reformats were created on a [employer] workstation. Contrast used: None Oral contrast used: without Oral Contrast FINDINGS: LOWER CHEST: Unremarkable ABDOMEN LIVER: Unremarkable GALLBLADDER AND BILE DUCTS: Unremarkable. PANCREAS: Unremarkable. SPLEEN: Unremarkable. ADRENAL GLANDS: Unremarkable. KIDNEYS AND URETERS: No evidence of hydronephrosis or renal calculus. The ureters are unremarkable. L eft peripelvic cyst. PELVIS BLADDER: Unremarkable REPRODUCTIVE: Prostate is enlarged in size measuring 5.2 cm in transverse dimension. ABDOMEN & PELVIS STOMACH AND BOWEL: No evidence of bowel obstruction. PERITONEUM/RETROPERITONEUM: No evidence of pneumoperitoneum or free fluid. VASCULATURE: No evidence of aortic aneurysm. MUSCULOSKELETAL: No acute osseous abnormalities. Mild disc degeneration changes are present throughou t the thoracolumbar spine. LYMPH NODES: No gross evidence for lymphadenopathy. SOFT TISSUE/ABDOMINAL WALL: Bilateral fat-containing inguinal hernias left greater than right. Fat-co ntaining umbilical hernia. IMPRESSION: 1. No acute abdominal process. No evidence of obstructive uropathy. No renal calculus. 2. Prostatomegaly. 3. Bilateral fat-containing inguinal hernias.
[2022-07-03 16:49] LABS: ALT 80 U/L (4-49); AST 57 U/L (17-59); African American GFR (CKD) >90 (>60 ml/min/1.73 sqM); Alkaline Phosphatase 75 U/L (38-126); Amylase 45 U/L (30-110); Anion Gap 7 mmol/L; Blood Urea Nitrogen 14 mg/dL (9-20); Calcium 9.6 mg/dL (8.4-10.2); Carbon Dioxide 26 mmol/L (22-30); Chloride 104 mmol/L (98-107); Glucose 99 mg/dL (74-99); Lipase 65 U/L (23-300); Non-African American GFR(CKD) >90 (>60 ml/min/1.73 sqM); Potassium 4.2 mmol/L (3.5-5.1); Sodium 137 mmol/L (137-145); Total Bilirubin 1.4 mg/dL (0.2-1.3); Total Protein 6.7 g/dL (6.3-8.2)
[2022-07-03 17:36] VITALS: BP 146/84; PULSE 76; RESP 18
== END 2022-07-03 17:36 | disposition home or self-care (01) ==
LOC: EC 14:55
DX: K40.20 Bilateral inguinal hernia, without obstruction or gangrene, not specified as recurrent (principal); N40.0 Benign prostatic hyperplasia without lower urinary tract symptoms; F17.200 Nicotine dependence, unspecified, uncomplicated; F12.90 Cannabis use, unspecified, uncomplicated
CPT/HCPCS: 36415; 80053; 82150; 83690; 85025; 74176; 99284; 96374; 96375; 96361; J2405; J1885

== ENCOUNTER 2023-02-24 14:38 | Inpatient (IN) | payer OTHER ==
--- NOTE | 2023-02-24 14:48 | ED ---
General Adult HPI - General Source: patient, RN notes reviewed Mode of arrival: ambulatory Limitations: no limitations <Chauncey Loya - Last Filed: 02/24/23 14:47> - General Source: patient, RN notes reviewed <Jacquelin Byrd - Last Filed: 02/24/23 17:40> - General Stated complaint: Sore throat LYNDA Time Seen by Provider: 02/24/23 14:47 - History of Present Illness Initial comments: 57-year-old male presents emergency Department with chief complaint of difficulty swallowing, sore throat. Patient states that he woke up with it today. Patient states it makes it difficult to breathe, swallow. He states right side of his throat is very swollen. No reports of fever. (Chauncey Loya) Patient is a 57-year-old male presenting to the ER with chief complaint of sore throat. Patient states he woke up this morning and was having difficulty swallowing and stating it was hurting to breathe. Patient states he took an old antibiotic that he had for urinary tract infection recently. Patient denies any fevers but does endorse mild chills. Patient reports he is a smoker. Patient denies any other complaints. (Jacquelin Byrd) - Related Data Home Medications Medication Instructions Recorded Confirmed Lisinopril-Hctz 10-12.5 mg 1 tab PO DIRECTED 04/02/22 04/02/22 [Zestoretic 10-12.5] Tamsulosin [Flomax] 0.4 mg PO DAILY 04/02/22 04/02/22 Previous Rx's Medication Instructions Recorded Ciprofloxacin HCl [Cipro] 500 mg PO BID 7 Days #14 tab 04/02/22 Allergies Allergy/AdvReac Type Severity Reaction Status Date / Time No Known Allergies Allergy Verified 02/24/23 15:15 Review of Systems ROS Other: All systems not noted in ROS Statement are negative. <Chauncey Loya - Last Filed: 02/24/23 14:47> ROS Other: All systems not noted in ROS Statement are negative. <Jacquelin Byrd - Last Filed: 02/24/23 17:40> ROS Statement: Those systems with pertinent positive or pertinent negative responses have been documented in the HPI. Past Medical History Past Medical History: Hyperlipidemia Additional Past Medical History / Comment(s): hx colon polyp, cyst on kidney, kidey stones History of Any Multi-Drug Resistant Organisms: None Reported Past Surgical History: No Surgical Hx Reported Additional Past Surgical History / Comment(s): colonoscopy Past Anesthesia/Blood Transfusion Reactions: No Reported Reaction Additional Past Anesthesia/Blood Transfusion Reaction / Comment(s): . Past Psychological History: No Psychological Hx Reported Smoking Status: Current every day smoker Past Alcohol Use History: Occasional Past Drug Use History: Marijuana - Past Family History Mother Family Medical History: No Reported History <Chauncey Loya - Last Filed: 02/24/23 14:47> General Exam <Chauncey Loya - Last Filed: 02/24/23 14:47> General appearance: alert, in no apparent distress Head exam: Present: atraumatic, normocephalic, normal inspection ENT exam: Present: other (Swelling noted to the right pharynx. Uvula is also edematous. There is a white plaque noted on right peritonsil area) Neck exam: Present: normal inspection. Absent: tenderness, meningismus, lymphadenopathy Respiratory exam: Present: normal lung sounds bilaterally. Absent: respiratory distress, wheezes, rales, rhonchi, stridor Cardiovascular Exam: Present: regular rate, normal rhythm, normal heart sounds. Absent: systolic murmur, diastolic murmur, rubs, gallop, clicks Neurological exam: Present: alert, oriented X3, CN II-XII intact Psychiatric exam: Present: normal affect, normal mood Skin exam: Present: warm, dry, intact, normal color. Absent: rash <Jacquelin Byrd - Last Filed: 02/24/23 17:40> - General Exam Comments Initial Comments: Visual Physical Exam Vital signs reviewed General: Well-appearing, nontoxic, no acute distress. Head: Normocephalic, atraumatic Eyes: PERRLA, EOMI ENT: Airway patent Chest: Nonlabored breathing Skin: No visual rash, normal skin tone Neuro: Alert and oriented 3 Musculoskeletal: No gross abnormalities (Chauncey Loya) Course Vital Signs 02/24/23 15:12 Temperature 98.8 F Pulse Rate 90 Respiratory 16 Rate Blood Pressure 182/83 O2 Sat by Pulse 97 Oximetry Medical Decision Making <Chauncey Loya - Last Filed: 02/24/23 14:47> - Lab Data Result diagrams: 02/24/23 15:29 02/24/23 15:29 - Radiology Data Radiology results: report reviewed, image reviewed <Jacquelin Byrd - Last Filed: 02/24/23 17:40> - Medical Decision Making I completed the quick note portion of this chart signed Chauncey Loya PA-C (Chauncey Loya) Was pt. sent in by a medical professional or institution ([facility], [employer], urgent care, hospital, or alf...) When possible be specific @ -No Did you speak to anyone other than the patient for history (EMS, parent, family, police, friend...)? What history was obtained from this source @ -No Did you review nursing and triage notes (agree or disagree)? Why? @ -I reviewed and agree with nursing and triage notes Were old charts reviewed (outside hosp., previous admission, EMS record, old EKG, old radiological studies, urgent care reports/EKG's, alf records)? Report findings @ -No old charts were reviewed Differential Diagnosis (chest pain, altered mental status, abdominal pain women, abdominal pain men, vaginal bleeding, weakness, fever, dyspnea, syncope, headache, dizziness, GI bleed, back pain, seizure, CVA, palpatations, mental health, musculoskeletal)? @ -[Differential Fever: Pneumonia, viral URI, endocarditis, myocarditis, pericarditis, otitis, sinusitis, peritonsillar Abscess, retropharyngeal Abscess, epiglottitis, peritonitis, appendicitis, Ronit cystitis, diverticulitis, hepatitis, colitis, UTI, PID, TOA, pyelonephritis, prostatitis, epididymitis, meningitis, encephalitis, pulmonary embolism, CVA, thyroid storm, pancreatitis, adrenal crisis, cavernous sinus thrombosis, this is not meant to be an all- inclusive list. EKG interpreted by me (3pts min.). @ -None X-rays interpreted by me (1pt min.). @ -None done CT interpreted by me (1pt min.). @ -CT soft tissue neck showed diffuse narrowing and swelling throughout the posterior oropharynx into the hypopharynx. Discrete underlying abnormality is not identified. U/S interpreted by me (1pt. min.). @ -None done What testing was considered but not performed or refused? (CT, X-rays, U/S, labs)? Why? @ -None What meds were considered but not given or refused? Why? @ -None Did you discuss the management of the patient with other professionals (professionals i.e. Dr., PA, [employer] DEVELOPER, lab, RT, psych nurse, social group worker, nut roaster, teacher, certification officer, lining caser)? Give summary @ -[Yes, I discussed this case with Dr. Barbour from radiology as he was reading the results. I also spoke with Nelda from [facility] for admission. Was smoking cessation discussed for >3mins.? @ -No Was critical care preformed (if so, how long)? @ -No Were there social determinants of health that impacted care today? How? (Johnny elessness, low income, unemployed, alcoholism, drug addiction, transportation, low edu. Level, literacy, decrease access to med. care, residential, rehab)? @ -No Was there de-escalation of care discussed even if they declined (Discuss DNR or withdrawal of care, Hospice)? DNR status @ -No What co-morbidities impacted this encounter? (DM, HTN, Smoking, COPD, CAD, Cancer, CVA, ARF, Chemo, Hep., AIDS, mental health diagnosis, sleep apnea, morbid obesity)? @ -None Was patient admitted / discharged? Hospital course, mention meds given and route, prescriptions, significant lab abnormalities, going to OR and other pertinent info. @ -Admitted. Patient is a 57-year-old male presented ER with chief complaint of throat swelling. Patient states that started last night. On examination there is edema noted to the posterior oropharynx. There is discoloration noted as well. Labs obtained in the ER show a white blood cell count of 11. Strep and mono were negative. Patient received IV Toradol for pain control in the ER. I spoke with Nelda from [facility] for admission. Patient will be started on IV 10 mg Decadron and 3 g IV Unasyn. Patient will be admitted for further evaluation. ENT will be on consult. Patient expressed understanding and agreement with care plan. Undiagnosed new problem with uncertain prognosis? @ -No Drug Therapy requiring intensive monitoring for toxicity (Heparin, Nitro, Insulin, Cardizem)? @ -No Were any procedures done? @ -No Diagnosis/symptom? @ -Oropharynx edema/retropharyngeal abscess Acute, or Chronic, or Acute on Chronic? @ -Acute Uncomplicated (without systemic symptoms) or Complicated (systemic symptoms)? @ -Complicated Side effects of treatment? @ -No Exacerbation, Progression, or Severe Exacerbation? @ -No Poses a threat to life or bodily function? How? (Chest pain, [place], [place], pneumonia, PE, COPD, DKA, ARF, appy, cholecystitis, CVA, Diverticulitis, Homicidal, Suicidal, threat to staff... and all critical care pts) @ -Possibly (Jacquelin Byrd) - Lab Data Lab Results 02/24/23 02/24/23 02/24/23 Range/Units 15:29 15:29 15:29 WBC 11.0 H (3.8-10.6) k/uL RBC 5.39 (4.30-5.90) m/uL Hgb 17.7 H (13.0-17.5) gm/dL Hct 51.0 (39.0-53.0) % MCV 94.7 (80.0-100.0) fL MCH 32.8 (25.0-35.0) pg MCHC 34.7 (31.0-37.0) g/dL RDW 12.1 (11.5-15.5) % Plt Count 196 (150-450) k/uL MPV 7.5 Neutrophils % 78 % Lymphocytes % 14 % Monocytes % 6 % Eosinophils % 1 % Basophils % 0 % Neutrophils # 8.6 H (1.3-7.7) k/uL Lymphocytes # 1.5 (1.0-4.8) k/uL Monocytes # 0.6 (0-1.0) k/uL Eosinophils # 0.1 (0-0.7) k/uL Basophils # 0.0 (0-0.2) k/uL Sodium 139 (137-145) mmol/L Potassium 3.6 (3.5-5.1) mmol/L Chloride 101 (98-107) mmol/L Carbon Dioxide 27 (22-30) mmol/L Anion Gap 11 mmol/L BUN 14 (9-20) mg/dL Creatinine 0.63 L (0.66-1.25) mg/dL Est GFR (CKD-EPI)AfAm >90 (>60 ml/min/1.73 sqM) Est GFR (CKD-EPI)NonAf >90 (>60 ml/min/1.73 sqM) Glucose 125 H (74-99) mg/dL Plasma Lactic Acid Panchito (0.7-2.0) mmol/L Calcium 9.8 (8.4-10.2) mg/dL Total Bilirubin 1.6 H (0.2-1.3) mg/dL AST 44 (17-59) U/L ALT 57 H (4-49) U/L Alkaline Phosphatase 81 (38-126) U/L Total Protein 7.0 (6.3-8.2) g/dL Albumin 4.3 (3.5-5.0) g/dL Heterophile Antibody Negative (Negative) Group A Strep (PCR) (Not Detectd) 02/24/23 02/24/23 Range/Units 15:29 15:29 WBC (3.8-10.6) k/uL RBC (4.30-5.90) m/uL Hgb (13.0-17.5) gm/dL Hct (39.0-53.0) % MCV (80.0-100.0) fL MCH (25.0-35.0) pg MCHC (31.0-37.0) g/dL RDW (11.5-15.5) % Plt Count (150-450) k/uL MPV Neutrophils % % Lymphocytes % % Monocytes % % Eosinophils % % Basophils % % Neutrophils # (1.3-7.7) k/uL Lymphocytes # (1.0-4.8) k/uL Monocytes # (0-1.0) k/uL Eosinophils # (0-0.7) k/uL Basophils # (0-0.2) k/uL Sodium (137-145) mmol/L Potassium (3.5-5.1) mmol/L Chloride (98-107) mmol/L Carbon Dioxide (22-30) mmol/L Anion Gap mmol/L BUN (9-20) mg/dL Creatinine (0.66-1.25) mg/dL Est GFR (CKD-EPI)AfAm (>60 ml/min/1.73 sqM) Est GFR (CKD-EPI)NonAf (>60 ml/min/1.73 sqM) Glucose (74-99) mg/dL Plasma Lactic Acid Panchito 1.3 (0.7-2.0) mmol/L Calcium (8.4-10.2) mg/dL Total Bilirubin (0.2-1.3) mg/dL AST (17-59) U/L ALT (4-49) U/L Alkaline Phosphatase (38-126) U/L Total Protein (6.3-8.2) g/dL Albumin (3.5-5.0) g/dL Heterophile Antibody (Negative) Group A Strep (PCR) NOT DETECTED (Not Detectd) Disposition <Chauncey Loya - Last Filed: 02/24/23 14:47> Time of Disposition: 17:39 <Jacquelin Byrd - Last Filed: 02/24/23 17:40> Clinical Impression: Retropharyngeal abscess Disposition: ADMITTED IP TO THIS HOSP Condition: Stable Referrals: Jennifer Herrera MD [Primary Care Provider] - 1-2 days
[2023-02-24] MEDS ORDERED: KETOROLAC 15 MG/ML 1 ML VIAL IVP STA (15:22)
[2023-02-24 15:45] LABS: Basophils % (A) 0 %; Eosinophils # (A) 0.1 k/uL (0-0.7); Eosinophils % (A) 1 %; HGB 17.7 gm/dL (13.0-17.5); Lymphocytes # (A) 1.5 k/uL (1.0-4.8); Lymphocytes % (A) 14 %; MCH 32.8 pg (25.0-35.0); MCHC 34.7 g/dL (31.0-37.0); MCV 94.7 fL (80.0-100.0); Mean Platelet Volume 7.5; Monocytes # (A) 0.6 k/uL (0-1.0); Monocytes % (A) 6 %; Neutrophils # (A) 8.6 k/uL (1.3-7.7); Neutrophils % (A) 78 %; Platelet Count 196 k/uL (150-450); RBC 5.39 m/uL (4.30-5.90); RDW 12.1 % (11.5-15.5)
[2023-02-24 15:59] LABS: African American GFR (CKD) >90 (>60 ml/min/1.73 sqM); Blood Urea Nitrogen 14 mg/dL (9-20); Carbon Dioxide 27 mmol/L (22-30); Glucose 125 mg/dL (74-99); Non-African American GFR(CKD) >90 (>60 ml/min/1.73 sqM); Total Bilirubin 1.6 mg/dL (0.2-1.3)
--- NOTE | 2023-02-24 16:06 | CT ---
EXAMINATION TYPE: CT soft tissue neck w con DATE OF EXAM: 02/24/2023 COMPARISON: HISTORY: Right-sided mass, difficult swallowing CT DLP: 413.3 mGycm CONTRAST: Patient injected with 100ml mL of Isovue 300. TECHNIQUE: Axial images at 3 mm thick sections. Reconstructed images in the coronal plane and sagitt al plane are reviewed. FINDINGS: Limited CT sections are obtained the lung apices. The lung apices appear clear. CT neck: The torus tubarius and fossa of Rosenmuller are normal. Account Support Associate spaces are normal. Para nasal sinuses and mastoid air cells are clear. Parotid glands appear normal and symmetrical. Submandibular glands, are normal. Parapharyngeal spac es are normal. No suspicious adenopathy is evident. There is narrowing through the hypopharynx and posterior oral pharynx. No underlying mass is evident. Generalized edema may be present. Reports called and case discussed with the emergency room by Dr. Sarai pike by telephone at time of interpretation. Vocal cord level appear symmetrical. Thyroid as visualized is normal. Osseous structures are normal. IMPRESSION: 1. Diffuse narrowing and swelling through the posterior oropharynx into the hypopharynx. Discrete und erlying abnormality is not identified.
[2023-02-24 16:21] LABS: ALT 57 U/L (4-49); AST 44 U/L (17-59); Albumin 4.3 g/dL (3.5-5.0); Alkaline Phosphatase 81 U/L (38-126); Anion Gap 11 mmol/L; Calcium 9.8 mg/dL (8.4-10.2); Chloride 101 mmol/L (98-107); Potassium 3.6 mmol/L (3.5-5.1); Sodium 139 mmol/L (137-145)
[2023-02-24] MEDS ORDERED: DEXAMETHASONE SOD PHOSPHATE 10 MG/ML 1 ML VIAL IVP STA (17:16)
[2023-02-24] MEDS ORDERED: AMPICILLIN-SULBACTAM 3 GM in SODIUM CHLORIDE 0.9% 100 ML IVPB STA (17:17)
[2023-02-24] MEDS ORDERED: NALOXONE 0.4 MG/ML 1 ML VIAL IV PRN (17:26)
[2023-02-24] MEDS ORDERED: ONDANSETRON 4 MG/2 ML VIAL IVP PRN (17:26)
[2023-02-24] MEDS: SODIUM CHLORIDE 0.9% 1,000 ML IV SCH (18:05)
[2023-02-24] MEDS: KETOROLAC 15 MG/ML 1 ML VIAL IVP PRN (22:23)
[2023-02-24 23:24] LABS: Glucose,Whole Blood 164 mg/dL (70-110)
[2023-02-24] MEDS: INSULIN ASPART (NovoLOG) 100 UNIT/ML VIAL SQ SCH (23:45)
[2023-02-25] MEDS ORDERED: hydrALAZINE HCL 20 MG/ML 1 ML VIAL IVP PRN (04:48)
[2023-02-25] MEDS: amLODIPine 5 MG TAB PO SCH ×2 (05:21→10:23)
[2023-02-25 07:49] LABS: Glucose,Whole Blood 149 mg/dL (70-110)
[2023-02-25] MEDS: INSULIN ASPART (NovoLOG) 100 UNIT/ML VIAL SQ SCH ×4 (07:49→20:38)
[2023-02-25] MEDS: TAMSULOSIN 0.4 MG CAP.ER.24H PO SCH (10:14)
[2023-02-25] MEDS: ATORVASTATIN 40 MG TAB PO SCH (10:14)
[2023-02-25] MEDS: OXYBUTYNIN 15 MG TAB.ER.24 PO SCH (10:14)
[2023-02-25] MEDS ORDERED: HYDROmorphone 0.5 MG/0.5 ML SYRINGE IVP PRN (11:39)
[2023-02-25] MEDS ORDERED: THIAMINE 100 MG/ML 2 ML VIAL IM STA (11:39)
[2023-02-25] MEDS: SODIUM CHLORIDE 0.9% 1,000 ML IV SCH ×2 (11:45→20:39)
[2023-02-25] MEDS: AMPICILLIN-SULBACTAM 3 GM in SODIUM CHLORIDE 0.9% 100 ML IVPB SCH ×3 (11:45→23:49)
[2023-02-25 11:52] LABS: Glucose,Whole Blood 177 mg/dL (70-110)
--- NOTE | 2023-02-25 12:02 | HP ---
HISTORY AND PHYSICAL CHIEF COMPLAINT: Sore throat and difficulty in swallowing. HISTORY OF PRESENT ILLNESS: This is a 57-year-old gentleman with a past medical history of hyperlipidemia, who was not feeling well for the last couple of days. The patient had a sore throat. The family is also affected with sore throat. The patient also has some difficulty in swallowing. The patient came to [facility]. The white count is elevated. A soft tissue CT of the neck showed diffuse narrowing and swelling through the posterior oropharynx and hypopharynx. Retropharyngeal abscess. ENT consultation in progress. There is no history of any fever, rigor, or chills at this time. PAST MEDICAL HISTORY: History of hyperlipidemia. Rest of the history and rest of the chart are also reviewed. HOME MEDICATIONS: Reviewed include oxybutynin. Doses and rest of the medications are reviewed. ALLERGIES: None. FAMILY HISTORY: No history of heart disease or strokes in the family. SOCIAL HISTORY: Daily alcohol. Smoking. REVIEW OF SYSTEMS: Fourteen-point review is negative except as mentioned earlier. PREOPERATIVE DIAGNOSIS: VITAL SIGNS: Pulse is 79, blood pressure 145/90, respirations 16. HEENT: Conjunctivae are normal. Throat, some congestion. NECK: No jugular venous distention. CARDIOVASCULAR: S1 and S2 muffled. RESPIRATORY: Breath sounds diminished at the bases. ABDOMEN: Soft and nontender. No masses palpable. LEGS: No edema. NERVOUS SYSTEM: No focal deficits. SKIN: No ulcers or rashes. JOINTS: No active deforming arthropathy. LABORATORY DATA: WBC 11. Other labs are noted. ASSESSMENT: 1. Sore throat and difficulty in swallowing with retropharyngeal swelling. Rule out retropharyngeal abscess. 2. Diabetes mellitus, type 2, possibly. 3. Hyperlipidemia. 4. History of prostate disorder. 5. History of EtOH. 6. History of nicotine dependence. RECOMMENDATIONS AND DISCUSSION: Recommend to continue current medical management. Continue symptomatic treatment. Broad-spectrum IV antibiotics, IV Unasyn, dexamethasone. I would also recommend Infectious Disease evaluation, cultures, hemoglobin A1c, DVT prophylaxis. Prognosis is guarded because of multiple complex medical issues. Further recommendations to follow. We will check COVID also. Group A Strep is negative. MMODL / IJN: [id number] /
[2023-02-25] MEDS ORDERED: DEXAMETHASONE SOD PHOSPHATE 4 MG/ML 1 ML VIAL IVP PRN (15:13)
--- NOTE | 2023-02-25 16:17 | XR ---
EXAMINATION TYPE: XR chest 1V portable DATE OF EXAM: 02/25/2023 HISTORY: Shortness of breath. COMPARISON: None. TECHNIQUE: Single view of the chest is submitted. FINDINGS: Demonstrated are scattered senescent parenchymal change. There is no evidence for focal infiltrate. The heart is stable. Hilar and mediastinal structures are within normal limits. Degenerative changes are seen of the dorsal spine. IMPRESSION: 1. Chronic changes without evidence for acute pulmonary disease.
[2023-02-25 17:45] LABS: Glucose,Whole Blood 154 mg/dL (70-110)
[2023-02-25] MEDS: HYDROcodone/APAP 5-325MG 1 EACH TAB PO PRN (18:08)
[2023-02-25] MEDS: KETOROLAC 15 MG/ML 1 ML VIAL IVP PRN (19:46)
[2023-02-25 20:07] LABS: Glucose,Whole Blood 150 mg/dL (70-110)
[2023-02-25] MEDS: HEPARIN SODIUM,PORCINE 5,000 UNIT/ML 1 ML VIAL SQ SCH (20:38)
[2023-02-26 07:03] LABS: Glucose,Whole Blood 117 mg/dL (70-110)
[2023-02-26] MEDS: INSULIN ASPART (NovoLOG) 100 UNIT/ML VIAL SQ SCH ×4 (07:20→20:42)
[2023-02-26] MEDS: HYDROcodone/APAP 5-325MG 1 EACH TAB PO PRN ×2 (08:14→20:56)
[2023-02-26] MEDS: ATORVASTATIN 40 MG TAB PO SCH (08:15)
[2023-02-26] MEDS: AMPICILLIN-SULBACTAM 3 GM in SODIUM CHLORIDE 0.9% 100 ML IVPB SCH ×3 (08:15→23:52)
[2023-02-26] MEDS: amLODIPine 5 MG TAB PO SCH (08:15)
[2023-02-26] MEDS: THIAMINE 100 MG TAB PO SCH (08:15)
[2023-02-26] MEDS: HEPARIN SODIUM,PORCINE 5,000 UNIT/ML 1 ML VIAL SQ SCH ×2 (08:15→20:42)
[2023-02-26] MEDS: OXYBUTYNIN 15 MG TAB.ER.24 PO SCH (08:15)
[2023-02-26] MEDS: TAMSULOSIN 0.4 MG CAP.ER.24H PO SCH (08:15)
[2023-02-26] MEDS: DEXAMETHASONE SOD PHOSPHATE 4 MG/ML 1 ML VIAL IVP SCH ×4 (09:21→23:53)
[2023-02-26] MEDS: SODIUM CHLORIDE 0.9% 1,000 ML IV SCH ×2 (09:21→20:43)
--- NOTE | 2023-02-26 10:37 | P.CONS ---
History of Present Illness - Reason for Consult Consult date: 02/25/23 Retropharyngeal abscess Requesting physician: Liana Hernandez - Chief Complaint Sore throat and difficulty swallowing x one day - History of Present Illness Patient is a 57-year-old male with a past medical history significant for hyperlipidemia history of colon polyp enlarged prostate recently exposed to the girlfriend who did have some respiratory symptoms presenting to the ER for evaluation of difficulty swallowing and sore throat patient symptoms started the day of presentation to the hospital the patient mentioned he woke up in the morning around 2 and noted to have significant sore throat and he was concerned he may have have difficulty breathing subsequently his symptoms continue get worse with more pain also complaining of difficulty breathing and difficulty swallowing for the patient presented to the ER patient did have some chills on arrival to the ER the patient was afebrile and no fever [address] and subsequently patient was not hypoxic or need for supplemental oxygen patient did have white count of 11,000 with a left shift creatinine was 0.63 CRP was 2.1 influenza RSV and group A strep was negative patient did have blood cultures done which are currently pending patient did have a CT of the soft tissue of the neck diffuse narrowing and swelling through the posterior oropharynx into the hypopharynx patient was started on Unasyn concerning for retropharyngeal abscess infectious disease was consulted for further management of IV antibiotic therapy consult has also been placed for ENT pending evaluation Review of Systems Positive point and negatives has been mentioned in the HPI, complete review of systems was performed and all other systems are negative Past Medical History Past Medical History: Hyperlipidemia, Prostate Disorder Additional Past Medical History / Comment(s): hx colon polyp, cyst on kidney, kidey stones, enlarged prostate History of Any Multi-Drug Resistant Organisms: None Reported Past Surgical History: No Surgical Hx Reported Additional Past Surgical History / Comment(s): colonoscopy Past Anesthesia/Blood Transfusion Reactions: No Reported Reaction Additional Past Anesthesia/Blood Transfusion Reaction / Comm: . Past Psychological History: No Psychological Hx Reported Smoking Status: Current every day smoker Past Alcohol Use History: Daily Additional Past Alcohol Use History / Comment(s): Patient claimes to usually only smoke in summer months. Past Drug Use History: None Reported, Marijuana - Past Family History Mother Family Medical History: No Reported History Medications and Allergies Home Medications Medication Instructions Recorded Confirmed Type Tamsulosin [Flomax] 0.4 mg PO DAILY 04/02/22 02/24/23 History Atorvastatin Calcium 40 mg PO DAILY 02/24/23 02/24/23 History Lisinopril-Hctz 20-25 mg 1 tab PO DAILY 02/24/23 02/24/23 History [Zestoretic 20-25] Oxybutynin Chloride [oxyBUTYnin 15 mg PO DAILY 02/24/23 02/24/23 History chloride ER] amLODIPine [Norvasc] 5 mg PO DAILY 02/24/23 02/24/23 History tadalafiL 5 mg PO DAILY PRN 02/24/23 02/24/23 History Amoxic-Pot Clav 875-125Mg 1 tab PO Q12HR 10 Days #20 tab 02/27/23 Rx [Augmentin 875-125] HYDROcodone/APAP 5-325MG [[place] 1 each PO Q6HR PRN #6 tab 02/27/23 Rx 5-325] Thiamine [Vitamin B-1] 100 mg PO DAILY #30 tab 02/27/23 Rx methylPREDNISolone Dose Pack 4 mg PO DIRECTED #21 tab 02/27/23 Rx [Medrol Dose Pack] Allergies Allergy/AdvReac Type Severity Reaction Status Date / Time No Known Allergies Allergy Verified 02/24/23 18:13 Physical Exam Vitals: Vital Signs Temp Pulse Pulse Resp BP BP Pulse Ox 02/25/23 11:48 98.3 F 94 18 137/72 94 L 02/25/23 11:35 16 02/25/23 10:11 88 120/69 02/25/23 07:14 97.7 F 79 16 144/90 96 02/25/23 07:12 97.7 F 76 18 145/81 95 02/25/23 02:00 97.8 F 74 16 171/100 97 02/24/23 20:12 98.6 F 86 16 164/86 99 02/24/23 20:00 98.2 F 16 161/89 92 L Intake and Output 02/25/23 02/25/23 02/25/23 06:59 14:59 22:59 Other: Voiding Method Toilet Urinal GENERAL DESCRIPTION: Middle-aged male lying in bed, no distress. No tachypnea or accessory muscle of respiration use. HEENT: Shows Pallor , no scleral icterus. Did have significant pharyngeal erythema and swelling NECK: Trachea central, no thyromegaly. LUNGS: Unlabored breathing. Clear to auscultation anteriorly. No wheeze or crackle. HEART: S1, S2, regular rate and rhythm. No loud murmur ABDOMEN: Soft, no tenderness , guarding or rigidity, no organomegaly EXTREMITIES: No edema of feet. SKIN: No rash, no masses palpable. NEUROLOGICAL: The patient is awake, alert, oriented x3, mood and affect normal. Results CBC & Chem 7: 02/27/23 06:31 02/27/23 06:31 Labs: Abnormal Lab Results - Last 24 Hours (Table) 02/24/23 02/24/23 02/25/23 Range/Units 15:29 23:22 07:13 Creatinine 0.63 L (0.66-1.25) mg/dL Glucose 125 H (74-99) mg/dL POC Glucose (mg/dL) 164 H 149 H (70-110) mg/dL Total Bilirubin 1.6 H (0.2-1.3) mg/dL ALT 57 H (4-49) U/L C-Reactive Protein (<1.0) mg/dL 02/25/23 02/25/23 Range/Units 11:52 12:27 Creatinine (0.66-1.25) mg/dL Glucose (74-99) mg/dL POC Glucose (mg/dL) 177 H (70-110) mg/dL Total Bilirubin (0.2-1.3) mg/dL ALT (4-49) U/L C-Reactive Protein 2.1 H (<1.0) mg/dL Assessment and Plan (1) Retropharyngeal abscess Current Visit: Yes Status: Acute Code(s): J39.0 - RETROPHARYNGEAL AND PARAPHARYNGEAL ABSCESS SNOMED Code(s): 82034604 Plan: 1patient Presented to the hospital with a sore throat difficulty swallowing and difficulty breathing in this patient who did have a significant development into the posterior pharyngeal area and abnormal CT concerning for retropharyngeal inflammation/infection 2we will continue the patient on Unasyn 3 g every 6 hours 3await ENT evaluation and need for drainage and culture We will follow on clinical condition and cultures to further adjust medication if needed Thank you for this consultation we will follow the patient along with you Dictation was produced using [employer] dictation software. please excuse any grammatical, word or spelling errors. Time with Patient: Greater than 30
[2023-02-26 10:52] LABS: Basophils # (A) 0.01 X 10*3/uL (0.00-0.10); Basophils % (A) 0.1 %; Eosinophils # (A) 0.01 X 10*3/uL (0.04-0.35); Eosinophils % (A) 0.1 %; HCT 46.8 % (39.6-50.0); HGB 16.2 g/dL (13.0-17.0); Lymphocytes # (A) 2.23 X 10*3/uL (0.90-5.00); Lymphocytes % (A) 19.9 %; MCH 32.2 pg (27.0-32.0); MCHC 34.6 g/dL (32.0-37.0); Mean Platelet Volume 10.1 FL (9.5-12.2); Monocytes # (A) 0.79 X 10*3/uL (0.20-1.00); NRBC Per 100 WBC 0 X 10*3/uL (0.00-0.01); Neutrophils # (A) 8.14 X 10*3/uL (1.80-7.70); Neutrophils % (A) 72.5 %; Platelet Count 183 X 10*3/uL (140-440); RBC 5.03 X 10*6/uL (4.40-5.60); RDW 12.4 % (11.5-14.5); WBC 11.22 X 10*3/uL (4.50-10.00)
[2023-02-26 11:01] LABS: ALT 57 U/L (10-49); AST 34 U/L (14-35); Albumin/Globulin Ratio 1.82 Ratio (1.60-3.17); Alkaline Phosphatase 77 U/L (41-126); BUN/Creat Ratio 20.71 Ratio (12.00-20.00); Blood Urea Nitrogen 14.5 mg/dL (9.0-27.0); Chloride 106 mmol/L (96-109); Globulin 2.2 g/dL (1.6-3.3); Glucose 119 mg/dL (70-110); Potassium 3.8 mmol/L (3.5-5.5); Sodium 142 mmol/L (135-145); Total Protein 6.2 g/dL (6.2-8.2)
[2023-02-26 11:50] LABS: Glucose,Whole Blood 152 mg/dL (70-110)
[2023-02-26 17:34] LABS: Glucose,Whole Blood 158 mg/dL (70-110)
[2023-02-26 20:30] LABS: Glucose,Whole Blood 246 mg/dL (70-110)
--- NOTE | 2023-02-27 06:17 | P.PN ---
Subjective Progress Note Date: 02/26/23 This is a pleasant 57-year-old male who was recently admitted with not feeling well over the last few days and had a significant sore throat having some increased difficulty in swallowing and swelling with concerns of possible retropharyngeal abscess. ENT was consulted and discussed over the phone with nursing staff that patient is to continue on antibiotic therapy as well as empiric antibiotics as the CT was reviewed and did not appear to be an abscess just significant swelling. Patient is started on IV dexamethasone along with antibiotics and infectious disease is following. Patient continues with significant swelling and infectious disease recommending monitoring overnight with possible discharge planning in the next 24 hours. Patient is currently afebrile with no reported chest pain or shortness of breath and reports to feeling much improved and having less difficulty with swallowing. Continue Accu-Cheks before meals and at bedtime and monitoring with sliding scale as blood sugars have been elevated most likely steroid effect. Review of systems: Constitutional: No reports of fatigue, fever, or chills Cardiovascular: No reports of chest pain or palpitations Respiratory: No reports of shortness of breath or cough GI: No reports of nausea, no reports of vomiting, reports improvement in swallowing : No reports of dysuria or retention Neurovascular: No reports of generalized weakness All medications have been reviewed PHYSICAL EXAMINATION: GENERAL: The patient is alert and oriented x4, Well developed, well nourished. Obese HEENT: Pupils are round and equally reacting to light. EOMI. no scleral icterus. No conjunctival pallor. Normocephalic, atraumatic. Continued pharyngeal erythema and swelling noted. No thyromegaly. CARDIOVASCULAR: S1 and S2 muffled PULMONARY: diminished breath sounds bilaterally with no wheezing or rhonchi noted. ABDOMEN: soft. Nontender on exam. obese. non-distended, normoactive bowel sounds. No palpable organomegaly. MUSCULOSKELETAL: No joint swelling or deformity. EXTREMITIES: No cyanosis, clubbing, or pedal edema. NEUROLOGICAL: Gross neurological examination did not reveal any focal deficits. Diffuse weakness SKIN: No rashes. Assessment: Sore throat with difficulty in swallowing with retropharyngeal swelling, rule out retropharyngeal abscess Diabetes mellitus, type II possibly was elevated blood sugars, steroid induced hyperglycemia as well Hyperlipidemia History of prostate disorder History of EtOH History of continued ongoing nicotine dependence GI prophylaxis DVT prophylaxis Full code Plan: Recommend to continue with current medications and management with infectious disease following. Patient is continued on antibiotics and will continue for now ENT was consulted and reviewed the imaging and reported to continue steroids and empiric antibiotics as this does not appear to be an abscess Continue IV dexamethasone as patient continues to have swelling noted in the pharyngeal area although there is some improvement. Infectious disease recommended monitoring overnight as there continues to be significant erythema and swelling noted Cultures have been negative, Covid as well as strep testing was negative Continue monitoring Accu-Cheks before meals and at bedtime and will continue sliding scale as blood sugars are elevated, likely steroid effect Will order repeat labs for a.m. White count was elevated although patient is afebrile, likely steroid effect and reactive Possible discharge in 24 hours once cleared by infectious disease The impression and plan of care has been dictated by Liana Hernandez, nurse practitioner as directed. Dr. Basilio MD I have performed a history and examination and MDM of this patient, discussed the same with the dictator, and agree with the dictator's assessment and plan as written ,documented as a scribe. Based on total visit time, I have performed more than 50% of the visit. Any additional findings or plans will be noted. Objective - Vital Signs Vital signs: Vital Signs Temp 97.4 F L 02/27/23 01:56 Pulse 65 02/27/23 01:56 Resp 19 02/27/23 01:56 BP 143/86 02/27/23 01:56 Pulse Ox 95 02/27/23 01:56 FiO2 Intake & Output 02/26/23 02/26/23 02/27/23 06:59 18:59 06:59 Intake Total 800 Balance 800 Intake: Intake, IV Titration 800 Amount Ampicillin-Sulbactam 3 gm 200 In Sodium Chloride 0.9% 100 ml @ 200 mls/hr IVPB Q8HR [facility] Rx#:[id number] Sodium Chloride 0.9% 1, 600 000 ml @ 75 mls/hr IV . [id number] [facility] Rx#:[id number] Other: Voiding Method Toilet Toilet Toilet Urinal Urinal Urinal # Voids 1 3 - Labs CBC & Chem 7: 02/26/23 06:23 02/26/23 06:23 Labs: Abnormal Lab Results - Last 24 Hours (Table) 02/26/23 02/26/23 02/26/23 Range/Units 06:23 06: 07:02 WBC 11.22 H (4.50-10.00) X 10*3/uL MCH 32.2 H (27.0-32.0) pg Neutrophils # 8.14 H (1.80-7.70) X 10*3/uL Eosinophils # 0.01 L (0.04-0.35) X 10*3/uL BUN/Creatinine Ratio 20.71 H (12.00-20.00) Ratio Glucose 119 H (70-110) mg/dL POC Glucose (mg/dL) 117 H (70-110) mg/dL ALT 57 H (10-49) U/L 02/26/23 02/26/23 02/26/23 Range/Units 11:50 17:33 20:29 WBC (4.50-10.00) X 10*3/uL MCH (27.0-32.0) pg Neutrophils # (1.80-7.70) X 10*3/uL Eosinophils # (0.04-0.35) X 10*3/uL BUN/Creatinine Ratio (12.00-20.00) Ratio Glucose (70-110) mg/dL POC Glucose (mg/dL) 152 H 158 H 246 H (70-110) mg/dL ALT (10-49) U/L Microbiology - Last 24 Hours (Table) 02/24/23 18:13 Blood Culture - Preliminary Blood 02/24/23 17:45 Blood Culture - Preliminary Blood 02/24/23 17:49 Throat Culture - Preliminary Throat
[2023-02-27] MEDS: DEXAMETHASONE SOD PHOSPHATE 4 MG/ML 1 ML VIAL IVP SCH (06:27)
[2023-02-27 07:05] LABS: Glucose,Whole Blood 111 mg/dL (70-110)
[2023-02-27 07:45] LABS: Basophils % (A) 0 %; Eosinophils % (A) 0 %; HCT 50.7 % (39.0-53.0); Lymphocytes # (A) 1.1 k/uL (1.0-4.8); Lymphocytes % (A) 11 %; MCH 32.1 pg (25.0-35.0); MCHC 33.5 g/dL (31.0-37.0); MCV 95.9 fL (80.0-100.0); Mean Platelet Volume 8.1; Monocytes # (A) 0.3 k/uL (0-1.0); Monocytes % (A) 3 %; Neutrophils # (A) 8.5 k/uL (1.3-7.7); Neutrophils % (A) 85 %; Platelet Count 201 k/uL (150-450); RBC 5.29 m/uL (4.30-5.90)
[2023-02-27 07:47] VITALS: BP 162/87; PULSE 71; RESP 16; TEMP 97.6
[2023-02-27 07:53] LABS: African American GFR (CKD) >90 (>60 ml/min/1.73 sqM); Anion Gap 9 mmol/L; Blood Urea Nitrogen 16 mg/dL (9-20); Calcium 9.2 mg/dL (8.4-10.2); Carbon Dioxide 24 mmol/L (22-30); Chloride 106 mmol/L (98-107); Glucose 119 mg/dL (74-99); Non-African American GFR(CKD) >90 (>60 ml/min/1.73 sqM); Potassium 3.9 mmol/L (3.5-5.1); Sodium 139 mmol/L (137-145)
[2023-02-27] MEDS: ATORVASTATIN 40 MG TAB PO SCH (08:50)
[2023-02-27] MEDS: THIAMINE 100 MG TAB PO SCH (08:50)
[2023-02-27] MEDS: TAMSULOSIN 0.4 MG CAP.ER.24H PO SCH (08:50)
[2023-02-27] MEDS: amLODIPine 5 MG TAB PO SCH (08:50)
[2023-02-27] MEDS: OXYBUTYNIN 15 MG TAB.ER.24 PO SCH (08:50)
[2023-02-27] MEDS: AMPICILLIN-SULBACTAM 3 GM in SODIUM CHLORIDE 0.9% 100 ML IVPB SCH (08:51)
[2023-02-27] MEDS: HEPARIN SODIUM,PORCINE 5,000 UNIT/ML 1 ML VIAL SQ SCH (08:52)
[2023-02-27] MEDS: INSULIN ASPART (NovoLOG) 100 UNIT/ML VIAL SQ SCH (08:53)
[2023-02-27] MEDS: HYDROcodone/APAP 5-325MG 1 EACH TAB PO PRN (08:56)
[2023-02-27] MEDS: SODIUM CHLORIDE 0.9% 1,000 ML IV SCH (08:56)
[2023-02-27 11:57] LABS: Glucose,Whole Blood 145 mg/dL (70-110)
--- NOTE | 2023-02-27 12:25 | P.PN ---
Subjective Progress Note Date: 02/26/23 Principal diagnosis: Reason for follow-up is retropharyngeal abscess/pharyngitis Patient is a 57-year-old male with a past medical history significant for hyperlipidemia history of colon polyp enlarged prostate recently exposed to the girlfriend who did have some respiratory symptoms presenting to the ER for evaluation of difficulty swallowing and sore throat, patient did have a CT of the soft tissue of the neck diffuse narrowing and swelling through the posterior oropharynx into the hypopharynx concerning for retropharyngeal abscess On today's evaluation that is 02/26/2023 the patient remains to be afebrile, the patient is breathing comfortably on room air and no need for supplemental oxygen, the patient symptoms of sore throat and difficulty swallowing has i mproved, patient denies having any chest pain or cough and no sputum production, patient denies nausea vomiting or any diarrhea, and no abdominal pain. Patient white count is around 11.22, creatinine 0.7 Objective - Vital Signs Vital signs: Vital Signs Temp 99.7 F H 02/26/23 06:59 Pulse 99 02/26/23 08:15 Resp 16 02/26/23 08:15 BP 145/81 02/26/23 06:59 Pulse Ox 94 L 02/26/23 06:59 FiO2 Intake & Output 02/25/23 02/26/23 02/26/23 18:59 06:59 18:59 Other: Voiding Method Toilet Toilet Toilet Urinal Urinal Urinal # Voids 1 - Exam GENERAL DESCRIPTION: Middle-age male lying in bed in no distress HEENT; was treated for anxiety still have significant inflammation RESPIRATORY SYSTEM: Unlabored breathing , clear to auscultation anteriorly HEART: S1 S2 regular rate and rhythm , ABDOMEN: Soft , no tenderness EXTREMITIES: No edema feet - Labs CBC & Chem 7: 02/27/23 06:31 02/27/23 06:31 Labs: Abnormal Lab Results - Last 24 Hours (Table) 02/25/23 02/25/23 02/25/23 Range/Units 12:27 17:39 20:04 WBC (4.50-10.00) X 10*3/uL MCH (27.0-32.0) pg Neutrophils # (1.80-7.70) X 10*3/uL Eosinophils # (0.04-0.35) X 10*3/uL BUN/Creatinine Ratio (12.00-20.00) Ratio Glucose (70-110) mg/dL POC Glucose (mg/dL) 154 H 150 H (70-110) mg/dL ALT (10-49) U/L C-Reactive Protein 2.1 H (<1.0) mg/dL 02/26/23 02/26/23 02/26/23 Range/Units :23 06:23 07:02 WBC 11.22 H (4.50-10.00) X 10*3/uL MCH 32.2 H (27.0-32.0) pg Neutrophils # 8.14 H (1.80-7.70) X 10*3/uL Eosinophils # 0.01 L (0.04-0.35) X 10*3/uL BUN/Creatinine Ratio 20.71 H (12.00-20.00) Ratio Glucose 119 H (70-110) mg/dL POC Glucose (mg/dL) 117 H (70-110) mg/dL ALT 57 H (10-49) U/L C-Reactive Protein (<1.0) mg/dL 02/26/23 Range/Units 11:50 WBC (4.50-10.00) X 10*3/uL MCH (27.0-32.0) pg Neutrophils # (1.80-7.70) X 10*3/uL Eosinophils # (0.04-0.35) X 10*3/uL BUN/Creatinine Ratio (12.00-20.00) Ratio Glucose (70-110) mg/dL POC Glucose (mg/dL) 152 H (70-110) mg/dL ALT (10-49) U/L C-Reactive Protein (<1.0) mg/dL Microbiology - Last 24 Hours (Table) 02/24/23 17:49 Throat Culture - Preliminary Throat 02/24/23 18:13 Blood Culture - Preliminary Blood 02/24/23 17:45 Blood Culture - Preliminary Blood Assessment and Plan (1) Retropharyngeal abscess Current Visit: Yes Status: Acute Code(s): J39.0 - RETROPHARYNGEAL AND PARAPHARYNGEAL ABSCESS SNOMED Code(s): 60873193 Plan: 1patient Presented to the hospital with a sore throat difficulty swallowing and difficulty breathing in this patient who did have a significant development into the posterior pharyngeal area and abnormal CT concerning for retropharyngeal inflammation/infection 2patient did have some clinical improvement and will continue the patient on Unasyn 3 g every 6 hours for another 24 hours, discuss with the admitting team Dictation was produced using [email or web address] dictation software. please excuse any grammatical, word or spelling errors. Time with Patient: Less than 30
--- NOTE | 2023-02-27 12:28 | P.PN ---
Subjective Progress Note Date: 02/27/23 Principal diagnosis: Reason for follow-up is retropharyngeal abscess/pharyngitis Patient is a 57-year-old male with a past medical history significant for hyperlipidemia history of colon polyp enlarged prostate recently exposed to the girlfriend who did have some respiratory symptoms presenting to the ER for evaluation of difficulty swallowing and sore throat, patient did have a CT of the soft tissue of the neck diffuse narrowing and swelling through the posterior oropharynx into the hypopharynx concerning for retropharyngeal abscess On today's evaluation that is 02/27/2023 the patient continues to be afebrile, the patient is breathing comfortably on room air , the patient symptoms of sore throat and difficulty swallowing has improved and the patient is feeling better wants to go home, patient denies having any chest pain or cough and no sputum production, patient denies nausea vomiting or any diarrhea, and no abdominal pain. Patient white count is down to 10.0, creatinine 0.58, blood cultures so far negative Objective - Vital Signs Vital signs: Vital Signs Temp 97.6 F 02/27/23 07:07 Pulse 71 02/27/23 07:07 Resp 16 02/27/23 07:07 BP 162/87 02/27/23 07:07 Pulse Ox 95 02/27/23 07:07 FiO2 Intake & Output 02/26/23 02/27/23 02/27/23 18:59 06:59 18:59 Intake Total 800 Balance 800 Intake: Intake, IV Titration 800 Amount Ampicillin-Sulbactam 3 gm 200 In Sodium Chloride 0.9% 100 ml @ 200 mls/hr IVPB Q8HR [facility] Rx#:[id number] Sodium Chloride 0.9% 1, 600 000 ml @ 75 mls/hr IV . [id number] [facility] Rx#:[id number] Other: Voiding Method Toilet Toilet Urinal Urinal # Voids 3 - Exam GENERAL DESCRIPTION: Middle-age male lying in bed in no distress HEENT; pharynx swelling and redness has decreased RESPIRATORY SYSTEM: Unlabored breathing , clear to auscultation anteriorly HEART: S1 S2 regular rate and rhythm , ABDOMEN: Soft , no tenderness EXTREMITIES: No edema feet - Labs CBC & Chem 7: 02/27/23 06:31 02/27/23 06:31 Labs: Abnormal Lab Results - Last 24 Hours (Table) 02/26/23 02/26/23 02/26/23 Range/Units 06:23 06:23 11:50 WBC 11.22 H (4.50-10.00) X 10*3/uL MCH 32.2 H (27.0-32.0) pg Neutrophils # 8.14 H (1.80-7.70) X 10*3/uL Eosinophils # 0.01 L (0.04-0.35) X 10*3/uL Creatinine (0.66-1.25) mg/dL BUN/Creatinine Ratio 20.71 H (12.00-20.00) Ratio Glucose 119 H (70-110) mg/dL POC Glucose (mg/dL) 152 H (70-110) mg/dL ALT 57 H (10-49) U/L 02/26/23 02/26/23 02/27/23 Range/Units 17:33 20:29 06:31 WBC (4.50-10.00) X 10*3/uL MCH (27.0-32.0) pg Neutrophils # 8.5 H (1.80-7.70) X 10*3/uL Eosinophils # (0.04-0.35) X 10*3/uL Creatinine (0.66-1.25) mg/dL BUN/Creatinine Ratio (12.00-20.00) Ratio Glucose (70-110) mg/dL POC Glucose (mg/dL) 158 H 246 H (70-110) mg/dL ALT (10-49) U/L 02/27/23 02/27/23 Range/Units 06:31 07:04 WBC (4.50-10.00) X 10*3/uL MCH (27.0-32.0) pg Neutrophils # (1.80-7.70) X 10*3/uL Eosinophils # (0.04-0.35) X 10*3/uL Creatinine 0.58 L (0.66-1.25) mg/dL BUN/Creatinine Ratio (12.00-20.00) Ratio Glucose 119 H (70-110) mg/dL POC Glucose (mg/dL) 111 H (70-110) mg/dL ALT (10-49) U/L Microbiology - Last 24 Hours (Table) 02/24/23 17:49 Throat Culture - Final Throat 02/24/23 18:13 Blood Culture - Preliminary Blood 02/24/23 17:45 Blood Culture - Preliminary Blood Assessment and Plan (1) Retropharyngeal abscess Current Visit: Yes Status: Acute Code(s): J39.0 - RETROPHARYNGEAL AND PARAPHARYNGEAL ABSCESS SNOMED Code(s): 67072504 Plan: 1patient Presented to the hospital with a sore throat difficulty swallowing and difficulty breathing in this patient who did have a significant development into the posterior pharyngeal area and abnormal CT concerning for retropharyngeal inflammation/infection 2patient did have some clinical improvement and wants to go home given considered a ten-day course of oral Augmentin on discharge discussed with the SHIPPER for admitting team working on discharge Dictation was produced using [employer] dictation software. please excuse any grammatical, word or spelling errors. Time with Patient: Less than 30
== END 2023-02-27 13:03 | disposition home or self-care (01) | DRG 113 ==
LOC: EC 14:38 → 5NMEDONC 17:17 → OBSVTOIN 17:18 → 5NMEDONC 18:29
PROVIDERS: ADMIT Hospitalist; ATTEND Hospitalist
DX: J39.0 Retropharyngeal and parapharyngeal abscess (principal); E78.5 Hyperlipidemia, unspecified; F17.210 Nicotine dependence, cigarettes, uncomplicated; J39.2 Other diseases of pharynx; E11.65 Type 2 diabetes mellitus with hyperglycemia; T38.0X5A Adverse effect of glucocorticoids and synthetic analogues, initial encounter; N40.0 Benign prostatic hyperplasia without lower urinary tract symptoms; Z20.822 Contact with and (suspected) exposure to COVID-19; Z79.899 Other long term (current) drug therapy; Z87.19 Personal history of other diseases of the digestive system; X58.XXXA Exposure to other specified factors, initial encounter; Z86.010 Personal history of colon polyps; Z87.442 Personal history of urinary calculi
CPT/HCPCS: 36415; 70491; 71045; 80048; 80053; 83605; 85025; 85652; 86140; 86308; 87040; 87070; 87636; 87651; 96365; 96366; 96375; 99285

== ENCOUNTER → 2024-01-16 | Outpatient (CLI) | payer OTHER ==
--- NOTE | 2024-01-21 10:13 | CTL ---
EXAMINATION TYPE: CT Low Dose Lung DATE OF EXAM: 01/16/2024 9:44 AM CLINICAL INDICATION: Male, 58 years old with history of Z12.2 ENCNTR SCREEN FOR MALIGNANT NEOPLASM OF RESP; current smoker, history of tobacco use. COMPARISON: 07/03/2022. TECHNIQUE: Multiple axial non-contrast scans were obtained from approximately the lung apices through the upper abdomen. Coronal and sagittal reformatted images were obtained. Low dose technique was uti lized. MIP were created on a separate workstation and submitted for review. CT DLP: 146.3 mGycm, Automated exposure control for dose reduction was used. CT Contrast: Contrast used: None Oral contrast used: None FINDINGS: Lack of intravenous contrast and low dose technique limits the evaluation of the vascular and soft ti ssue structures. LUNGS: No evidence of pulmonary fibrosis. No evidence of focal consolidation, pneumothorax or pleural effusion. Centrilobular emphysema changes. Nodules: RUL: None. RML: 6 mm right middle lobe nodule series 5r image 53. RLL: None. AUSTEN: None. LLL: 3 mm left lower lobe, series 5 image 49. AIRWAY: Patent and unremarkable. HEART: Size within normal limits. MEDIASTINUM: No gross evidence of adenopathy. VASCULATURE: No aortic aneurysm. MUSCULOSKELETAL: No acute osseous abnormalities SOFT TISSUES/LYMPH NODES: Unremarkable. LOWER NECK: No significant findings. UPPER ABDOMEN: No significant findings. IMPRESSION: 1. New 6 mm right middle lobe subpleural nodule versus atelectasis. Short-term follow-up in 6 months recommended to ensure stability. 2. Mild emphysema. CT LUNG RAD AND CT CHEST RECOMMENDATION: Lung-Rad 3 Probably Benign: 6 month follow-up LDCT. S Modifier (other clinically significant findings): None Recommend smoking cessation (if current smoker), or continuation of smoking cessation (if prior smoke r). Annual screening for lung cancer with low-dose computed tomography is recommended in adults ages 55 to 77 years who have a 30 pack-year smoking history and currently smoke or have quit within the pa st 15 years. Screening should be discontinued once a person has not smoked for 15 years or develops a health problem that substantially limits life expectancy or the ability or willingness to have curat oj lung surgery. Lung rads 2021 [email or web address] [facility], , 01/21/2024 10:11 AM
== END | disposition home or self-care (01) ==
LOC: RADCTMAIN 08:24
PROVIDERS: ATTEND Family Medicine
CPT/HCPCS: 71271

== ENCOUNTER → 2024-07-23 | Outpatient (CLI) | payer MEDICARE, OTHER ==
--- NOTE | 2024-07-23 09:22 | CTL ---
EXAMINATION TYPE: CT Low Dose Lung DATE OF EXAM: 07/23/2024 9:17 AM COMPARISON: 01/16/2024 CLINICAL INDICATION: Male, 59 years old with history of Z12.2 LUNG CA SCREEN F17.210 CURRENT SMOKER, current smoker, 1 pack a day for 20 years, History of tobacco use. TECHNIQUE: Low Dose CT Lung Screening, Low dose computed tomography scan was performed through the est at 1 millimeter thick sections and reconstructed images in the coronal plane at 1 mm thick sectio ns. IV CONTRAST USED: None. SCREENING VISIT: Second CT DLP: 86 mGycm, Automated exposure control for dose reduction was used. CT CTDI: 2.41 mGy FINDINGS: CT DIAGNOSTIC QUALITY: Satisfactory LUNG NODULES: Not presentLeft lung: no nodules identified.Right lung: no nodules identified. LUNGS: COPD: Severity: Mild Fibrosis: Severity:None Lymph nodes: None Other findings: None RIGHT PLEURAL SPACE: Effusion: None Calcification: None Thickening: None Pneumothorax: None LEFT PLEURAL SPACE: Effusion: None Calcification: None Thickening: None Pneumothorax: None HEART: * Size within normal limits. * No significant coronary artery calcifications. OTHER FINDINGS: Upper abdomen: No significant abnormality Bony thorax: Degenerative changes Supraclavicular region: No significant abnormalityOther: No significant abnormalityI IMPRESSION: 1. No clinically significant pulmonary nodules. 2. Mild emphysema. CT LUNG RAD AND CT CHEST RECOMMENDATION: Lung-Rad 1 Negative: Continue annual screening with LDCT in 12 months. S Modifier (other clinically significant findings): [facility], , 07/23/2024 9:20 AM
== END | disposition home or self-care (01) ==
LOC: RADCTMAIN 08:48
PROVIDERS: ATTEND Family Medicine
DX: Z12.2 Encounter for screening for malignant neoplasm of respiratory organs (principal); J43.9 Emphysema, unspecified; F17.210 Nicotine dependence, cigarettes, uncomplicated; R93.89 Abnormal findings on diagnostic imaging of other specified body structures
CPT/HCPCS: 71271

== ENCOUNTER 2024-10-09 01:50 | Emergency (ER) | payer MEDICARE, OTHER ==
[2024-10-09] MEDS: KETOROLAC 15 MG/ML 1 ML VIAL IVP STA (02:47)
[2024-10-09 03:04] LABS: Basophils # (A) 0.02 10*3/uL (0.00-0.10); Basophils % (A) 0.3 %; Eosinophils # (A) 0.11 10*3/uL (0.04-0.35); Eosinophils % (A) 1.6 %; HCT 46.8 % (39.6-50.0); HGB 17.2 g/dL (13.0-17.0); Lymphocytes # (A) 1.55 10*3/uL (0.90-5.00); Lymphocytes % (A) 23.0 %; MCH 32.5 pg (27.0-32.0); MCHC 36.8 g/dL (32.0-37.0); MCV 88.3 fL (80.0-97.0); Monocytes # (A) 0.54 10*3/uL (0.20-1.00); Monocytes % (A) 8.0 %; Neutrophils # (A) 4.51 10*3/uL (1.80-7.70); Neutrophils % (A) 66.8 %; Platelet Count 204 10*3/uL (140-440); RBC 5.30 10*6/uL (4.40-5.60); RDW 11.4 % (11.5-14.5); WBC 6.75 10*3/uL (4.50-10.00)
[2024-10-09 03:10] LABS: Bacteria,Urine Rare /hpf; Bilirubin,Urine Negative (Negative); Blood,Urine Negative (Negative); Color,Urine Colorless; Glucose,Urine (UA) Negative (Negative); Ketones,Urine Negative (Negative); Leukocyte Esterase,Urine Moderate (Negative); Mucus,Urine Rare /hpf; Nitrite,Urine Negative (Negative); PH, Urine 6.0 (5.0-8.0); Protein,Urine Negative (Negative); RBC,Urine 2 /hpf (0-5); Specific Gravity,Urine 1.007 (1.001-1.035); Urobilinogen,Urine <2.0 mg/dL (<2.0); WBC,Urine 16 /hpf (0-5)
[2024-10-09 03:20] LABS: ALT 87 U/L (4-49); AST 46 U/L (17-59); African American GFR (CKD) >90 (>60 ml/min/1.73 sqM); Albumin 4.5 g/dL (3.5-5.0); Alkaline Phosphatase 88 U/L (38-126); Anion Gap 16 mmol/L; Blood Urea Nitrogen 11 mg/dL (9-20); Calcium 10.1 mg/dL (8.4-10.2); Carbon Dioxide 19 mmol/L (22-30); Chloride 98 mmol/L (98-107); Glucose 112 mg/dL (74-99); Non-African American GFR(CKD) >90 (>60 ml/min/1.73 sqM); Potassium 3.8 mmol/L (3.5-5.1); Sodium 133 mmol/L (137-145); Total Protein 7.2 g/dL (6.3-8.2)
--- NOTE | 2024-10-09 04:12 | CT ---
EXAM: CT Abdomen and Pelvis Without Intravenous Contrast CLINICAL HISTORY: ITS.REASON CT Reason: abdominal pain TECHNIQUE: Axial computed tomography images of the abdomen and pelvis without intravenous contrast. CTDI is 15.4 mGy and DLP is 1156 mGy-cm. This CT exam was performed using one or more of the following dose reduction techniques: automated exposure control, adjustment of the mA and/or kV according to patient size, and/or use of iterative reconstruction technique. COMPARISON: 07/03/2022 FINDINGS: Mediastinum: Trace hiatal hernia. ABDOMEN: Liver: Unremarkable. Gallbladder and bile ducts: Unremarkable. Pancreas: Unremarkable. Spleen: Unremarkable. Adrenals: Unremarkable. Kidneys and ureters: Mild periureteral fat stranding bilaterally. No obstructing stone or hydronephrosis. Parapelvic cysts in the left kidney measuring 2.9 cm. Stomach and bowel: Unremarkable. PELVIS: Appendix: No findings to suggest acute appendicitis. Bladder: Bladder is decompressed with a Caal catheter in place. Reproductive: Unremarkable as visualized. ABDOMEN and PELVIS: Intraperitoneal space: Unremarkable. No free air. No significant fluid collection. Bones/joints: No acute fracture. Soft tissues: Unremarkable. Vasculature: Unremarkable. Lymph nodes: Unremarkable. IMPRESSION: 1. Mild periureteral fat stranding bilaterally which can be seen in the setting of infection. No obstructing stone or hydronephrosis. 2. Bladder is decompressed with a Caal catheter in place. 3. Trace hiatal hernia.
--- NOTE | 2024-10-09 04:45 | ED ---
Male Urogenital HPI - General Chief complaint: Urogenital Stated complaint: Abdominal Pain, Urine Retention Time Seen by Provider: 10/09/24 02:00 Source: patient Mode of arrival: ambulatory Limitations: no limitations - History of Present Illness Initial comments: 59-year-old male who presents to the emergency department reporting lower abdomi nal discomfort. States that he cannot urinate. Has been unable to urinate for the past 3 hours. Does admit to a history of kidney stones and is concerned for similar. Denies hematuria. Pain is not lateralizing. He denies dysuria. No diarrhea, constipation, black or bloody stools has taken Flomax in the past but is not currently on it. No report of any fevers. No back pain. No nausea or v omiting. No other alleviating, precipitating or modifying factors - Related Data Home Medications Medication Instructions Recorded Confirmed Tamsulosin [Flomax] 0.4 mg PO DAILY 04/02/22 02/24/23 Atorvastatin Calcium 40 mg PO DAILY 02/24/23 02/24/23 Lisinopril-Hctz 20-25 mg 1 tab PO DAILY 02/24/23 02/24/23 [Zestoretic 20-25] Oxybutynin Chloride [oxyBUTYnin 15 mg PO DAILY 02/24/23 02/24/23 chloride ER] amLODIPine [Norvasc] 5 mg PO DAILY 02/24/23 02/24/23 tadalafiL 5 mg PO DAILY PRN 02/24/23 02/24/23 Previous Rx's Medication Instructions Recorded Amoxic-Pot Clav 875-125Mg 1 tab PO Q12HR 10 Days #20 tab 02/27/23 [Augmentin 875-125] HYDROcodone/APAP 5-325MG [[place] 1 each PO Q6HR PRN #6 tab 02/27/23 5-325] Thiamine [Vitamin B-1] 100 mg PO DAILY #30 tab 02/27/23 methylPREDNISolone Dose Pack 4 mg PO DIRECTED #21 tab 02/27/23 [Medrol Dose Pack] Cephalexin [Keflex] 500 mg PO Q6HR #28 cap 10/09/24 Tamsulosin HCl [Flomax] 0.4 mg PO DAILY #14 cap 10/09/24 Allergies Allergy/AdvReac Type Severity Reaction Status Date / Time No Known Allergies Allergy Verified 10/09/24 01:58 Review of Systems ROS Statement: Those systems with pertinent positive or pertinent negative responses have been documented in the HPI. ROS Other: All systems not noted in ROS Statement are negative. Past Medical History Past Medical History: Hyperlipidemia, Prostate Disorder Additional Past Medical History / Comment(s): hx colon polyp, cyst on kidney, kidey stones, enlarged prostate History of Any Multi-Drug Resistant Organisms: None Reported Past Surgical History: No Surgical Hx Reported Additional Past Surgical History / Comment(s): colonoscopy Past Anesthesia/Blood Transfusion Reactions: No Reported Reaction Additional Past Anesthesia/Blood Transfusion Reaction / Comment(s): . Past Psychological History: No Psychological Hx Reported Smoking Status: Current every day smoker Past Alcohol Use History: Daily, Occasional Past Drug Use History: Marijuana - Past Family History Mother Family Medical History: No Reported History General Exam Limitations: no limitations General appearance: alert, in no apparent distress Head exam: Present: atraumatic, normocephalic, normal inspection Eye exam: Present: normal appearance, PERRL, EOMI. Absent: scleral icterus, conjunctival injection, periorbital swelling ENT exam: Present: normal exam, mucous membranes moist Neck exam: Present: normal inspection. Absent: tenderness, meningismus, lymphadenopathy Respiratory exam: Present: normal lung sounds bilaterally. Absent: respiratory distress, wheezes, rales, rhonchi, stridor Cardiovascular Exam: Present: regular rate, normal rhythm, normal heart sounds. Absent: systolic murmur, diastolic murmur, rubs, gallop, clicks GI/Abdominal exam: Present: soft, distended, tenderness (Suprapubic fullness), normal bowel sounds. Absent: guarding, rebound, rigid Extremities exam: Present: normal inspection, full ROM, normal capillary refill. Absent: tenderness, pedal edema, joint swelling, calf tenderness Back exam: Present: normal inspection Neurological exam: Present: alert, oriented X3, CN II-XII intact Psychiatric exam: Present: normal affect, normal mood Skin exam: Present: warm, dry, intact, normal color. Absent: rash Course Vital Signs 10/09/24 10/09/24 01:58 05:11 Temperature 97.4 F L 97.5 F L Pulse Rate 77 64 Respiratory 22 18 Rate Blood Pressure 179/105 134/87 O2 Sat by Pulse 96 94 L Oximetry Medical Decision Making - Medical Decision Making Was pt. sent in by a medical professional or institution ([employer], MAGNETIC GRINDER OPERATOR, urgent care, hospital, or shelter...) When possible be specific @ -No Did you speak to anyone other than the patient for history (EMS, parent, family, police, friend...)? What history was obtained from this source @ -No Did you review nursing and triage notes (agree or disagree)? Why? @ -I reviewed and agree with nursing and triage notes Were old charts reviewed (outside hosp., previous admission, EMS record, old EKG, old radiological studies, urgent care reports/EKG's, shelter records)? Report findings @ -No old charts were reviewed Differential Diagnosis (chest pain, altered mental status, abdominal pain women, abdominal pain men, vaginal bleeding, weakness, fever, dyspnea, syncope, headache, dizziness, GI bleed, back pain, seizure, CVA, palpatations, mental health, musculoskeletal)? @ -Differential Abdominal Pain Men: Appendicitis, cholecystitis, diverticulosis, ischemic bowel, pancreatitis, hepatitis, UTI, gastroenteritis, AAA, incarcerated hernia, bowel obstruction, constipation, inflammatory bowel, hepatitis, peptic ulcer disease, splenic infarction, perforated viscus, testicular torsion, this is not meant to be an all-inclusive list EKG interpreted by me (3pts min.). @ -Not done X-rays interpreted by me (1pt min.). @ -None done CT interpreted by me (1pt min.). @ -Yes which demonstrates no signs of stone U/S interpreted by me (1pt. min.). @ -None done What testing was considered but not performed or refused? (CT, X-rays, U/S, labs)? Why? @ -None What meds were considered but not given or refused? Why? @ -None Did you discuss the management of the patient with other professionals (professionals i.e. [employer], MAGNETIC GRINDER OPERATOR, lab, RT, psych nurse, social services technician, artificial glass eye maker, teacher, president and chief commercial officer, director of casework)? Give summary @ -No Was smoking cessation discussed for >3mins.? @ -No Was critical care preformed (if so, how long)? @ -No Were there social determinants of health that impacted care today? How? (Homelessness, low income, unemployed, alcoholism, drug addiction, t ransportation, low edu. Level, literacy, decrease access to med. care, retirement, rehab)? @ -No Was there de-escalation of care discussed even if they declined (Discuss DNR or withdrawal of care, Hospice)? DNR status @ -No What co-morbidities impacted this encounter? (DM, HTN, Smoking, COPD, CAD, Cance r, CVA, ARF, Chemo, Hep., AIDS, mental health diagnosis, sleep apnea, morbid obesity)? @ -Kidney stones Was patient admitted / discharged? Hospital course, mention meds given and route, prescriptions, significant lab abnormalities, going to OR and other pertinent info. @ -Upon arrival patient seen and evaluated in room 21. Thorough history and physical exam was performed. IV access was established. Laboratory studies are conducted. Bladder scan was performed which demonstrates greater than 700 cc in the bladder. We did place a Caal catheter with return of 850 out. Patient does go for CT which does not demonstrate stones. Results are discussed with the patient. He does have some bacteria in his urine and therefore he was given a dose of Rocephin and started on Flomax. Patient discharged home with Flomax and Keflex. Instructed to take the medications as they are instructed and follow-up with the urologist for Caal catheter removal. Patient was in agreement with this. He was discharged in stable condition Undiagnosed new problem with uncertain prognosis? @ -No Drug Therapy requiring intensive monitoring for toxicity (Heparin, Nitro, Insulin, Cardizem)? @ -No Were any procedures done? @ -Caal catheter insertion Diagnosis/symptom? @ -Acute abdominal pain, acute urinary retention, abnormal UA Acute, or Chronic, or Acute on Chronic? @ -Acute Uncomplicated (without systemic symptoms) or Complicated (systemic symptoms)? @ -Complicated Side effects of treatment? @ -No Exacerbation, Progression, or Severe Exacerbation? @ -No Poses a threat to life or bodily function? How? (Chest pain, [place], [place], pneumonia, PE, COPD, DKA, ARF, appy, cholecystitis, CVA, Diverticulitis, Homicidal, Suicidal, threat to staff... and all critical care pts) @ -No - Lab Data Result diagrams: 10/09/24 02:39 10/09/24 02:39 Lab Results 10/09/24 10/09/24 10/09/24 Range/Units 02:26 02:39 02:39 WBC 6.75 (4.50-10.00) 10*3/uL RBC 5.30 (4.40-5.60) 10*6/uL Hgb 17.2 H (13.0-17.0) g/dL Hct 46.8 (39.6-50.0) % MCV 88.3 (80.0-97.0) fL MCH 32.5 H (27.0-32.0) pg MCHC 36.8 (32.0-37.0) g/dL Plt Count 204 (140-440) 10*3/uL MPV 9.8 (9.5-12.2) fL Immature Gran % (Auto) 0.3 % Neutrophils % 66.8 % Lymphocytes % 23.0 % Monocytes % 8.0 % Eosinophils % 1.6 % Basophils % 0.3 % Immature Gran # 0.02 (0.00-0.04) 10*3/uL Neutrophils # 4.51 (1.80-7.70) 10*3/uL Lymphocytes # 1.55 (0.90-5.00) 10*3/uL Monocytes # 0.54 (0.20-1.00) 10*3/uL Eosinophils # 0.11 (0.04-0.35) 10*3/uL Basophils # 0.02 (0.00-0.10) 10*3/uL Sodium 133 L (137-145) mmol/L Potassium 3.8 (3.5-5.1) mmol/L Chloride 98 (98-107) mmol/L Carbon Dioxide 19 L (22-30) mmol/L Anion Gap 16 mmol/L BUN 11 (9-20) mg/dL Creatinine 0.64 L (0.66-1.25) mg/dL Est GFR (CKD-EPI)AfAm >90 (>60 ml/min/1.73 sqM) Est GFR (CKD-EPI)NonAf >90 (>60 ml/min/1.73 sqM) Glucose 112 H (74-99) mg/dL Calcium 10.1 (8.4-10.2) mg/dL Total Bilirubin 1.2 (0.2-1.3) mg/dL AST 46 (17-59) U/L ALT 87 H (4-49) U/L Alkaline Phosphatase 88 (38-126) U/L Total Protein 7.2 (6.3-8.2) g/dL Albumin 4.5 (3.5-5.0) g/dL Urine Color Colorless Urine Appearance Clear (Clear) Urine pH 6.0 (5.0-8.0) Ur Specific [place] 1.007 (1.001-1.035) Urine Protein Negative (Negative) Urine Glucose (UA) Negative (Negative) Urine Ketones Negative (Negative) Urine Blood Negative (Negative) Urine Nitrite Negative (Negative) Urine Bilirubin Negative (Negative) Urine Urobilinogen <2.0 (<2.0) mg/dL Ur Leukocyte Esterase Moderate H (Negative) Urine RBC 2 (0-5) /hpf Urine WBC 16 H (0-5) /hpf Urine WBC Clumps Rare H (None) /hpf Urine Bacteria Rare H (None) /hpf Urine Mucus Rare H (None) /hpf Disposition Clinical Impression: Urinary retention, Abdominal pain, Abnormal urinalysis Disposition: HOME SELF-CARE Condition: Stable Instructions (If sedation given, give patient instructions): Urinary Retention in Men (ED) Additional Instructions: Please take the antibiotic as they are instructed. Use the Flomax daily. Follow-up with a urologist within 5 to 7 days to have your catheter removed. Return for any new or worsening symptoms Prescriptions: Tamsulosin HCl [Flomax] 0.4 mg PO DAILY #14 cap Cephalexin [Keflex] 500 mg PO Q6HR #28 cap Is patient prescribed a controlled substance at d/c from ED?: No Referrals: Jennifer Herrera MD [Primary Care Provider] - 1-2 days Сергей Phillips MD [STAFF PHYSICIAN] - 1-2 days Time of Disposition: 04:44
[2024-10-09] MEDS: TAMSULOSIN 0.4 MG CAP.ER.24H PO STA (04:52)
[2024-10-09] MEDS: cefTRIAXone IN SWFI 1,000 MG/10 ML SYRINGE IVP STA (04:53)
[2024-10-09 05:13] VITALS: BP 134/87; PULSE 64; RESP 18; TEMP 97.5
== END 2024-10-09 05:40 | disposition home or self-care (01) ==
LOC: EC 01:50
CPT/HCPCS: 36415; 51702; 51798; 74176; 80053; 81001; 85025; 96374; 96375; 99284